=== PATIENT | female | born 1995 | race Caucasian/White ===

== ENCOUNTER 2017-09-22 13:43 | Emergency (ER) | payer BC ==
[2017-09-22 13:54] VITALS: BP 102/70
--- NOTE | 2017-09-22 14:11 | UC ---
Skin Complaint HPI - HPI Summary HPI Summary: while cleaning today, pt bent her R 5th fingernail backwards and it partially tore off - History of Current Complaint Chief Complaint: UCSkin Time Seen by Provider: 09/22/17 13:58 Stated Complaint: FINGERNAIL INJURY Hx Obtained From: Patient Hx Last Menstrual Period: 08/23/17 ?: No Onset/Duration: Sudden Onset Skin Exposure Onset/Duration: Hours Ago - 1h Timing: Constant Onset Severity: Severe Current Severity: Moderate Pain Intensity: 6 Location: Hand (Right) - 5th finger nail Character: Painful Aggravating Factor(s): Touch Alleviating Factor(s): Cold Compresses, Other - elevated Associated Signs & Symptoms: Positive: Negative - Allergy/Home Medications Allergies/Adverse Reactions: Allergies Allergy/AdvReac Type Severity Reaction Status Date / Time Environmental Allergy Congestion Uncoded 09/22/17 13:54 Review of Systems Constitutional: Negative Respiratory: Negative Cardiovascular: Negative Musculoskeletal: Negative Neurological: Negative Psychological: Negative All Other Systems Reviewed And Are Negative: Yes PMH/Surg Hx/FS Hx/Imm Hx Previously Healthy: Yes - Surgical History Surgical History: None - Family History Known Family History: Negative: Cardiac Disease, Hypertension, Diabetes - Social History Occupation: Employed Full-time Lives: With Family Alcohol Use: Weekly Substance Use Type: Marijuana Substance Use Comment - Amount & Last Used: not since last year Smoking Status (MU): Current Some Day Smoker Type: Cigarettes Amount Used/How Often: 1 pack per week Length of Time of Smoking/Using Tobacco: 1.5 years When Did the Patient Quit Smoking/Using Tobacco: 2.5 weeks ago Cessation Counseling: Patient Advised to Stop - Immunization History Vaccination Up to Date: Yes Physical Exam Triage Information Reviewed: Yes Appearance: Well-Appearing, No Pain Distress, Well-Nourished Vital Signs: Initial Vital Signs Temp 98 F 09/22/17 13:45 Pulse 70 09/22/17 13:45 Resp 18 09/22/17 13:45 BP 102/70 09/22/17 13:45 Pulse Ox 100 09/22/17 13:45 Vital Signs Reviewed: Yes Respiratory Exam: Normal Cardiovascular Exam: Normal Musculoskeletal Exam: Normal Musculoskeletal: Positive: Strength Intact, ROM Intact Neurological Exam: Normal Psychological Exam: Normal Skin: Positive: Other - partial avulsion R 5th nail from nail bed Course/Dx - Course Course Of Treatment: nail supported by tape, finger splint applied - Differential Diagnoses - Skin Complaint Differential Diagnoses: Other - nail avulsion, finger fracture - Diagnoses Provider Diagnoses: R 5th fingernail avulsion Discharge - Sign-Out/Discharge Documenting (check all that apply): Patient Departure - Discharge Plan Condition: Good Disposition: HOME Patient Education Materials: Nail Avulsion (ED) Referrals: Samreen Govea MD [Primary Care Provider] - 2 Days (if no better) Additional Instructions: keep wound clean and dry, keep nail taped for 3-5 days use finger splint for 3 days monitor for infection and report signs if they occur - Billing Disposition and Condition Condition: GOOD Disposition: Home Attestation Statement User Type: Provider - I was available for consult. This patient was seen by the [facility]. The patient was not presented to, seen by, or examined by me. -Marcelina
== END 2017-09-22 14:27 | disposition home or self-care (01) ==
LOC: UCEAST 13:43
DX: S61.306A Unspecified open wound of right little finger with damage to nail, initial encounter (principal); W22.8XXA Striking against or struck by other objects, initial encounter; Y92.89 Other specified places as the place of occurrence of the external cause
CPT/HCPCS: 99211; G0463

== ENCOUNTER 2018-03-18 09:37 | Emergency (ER) | payer BC ==
[2018-03-18 10:03] VITALS: BP 99/59
[2018-03-18] MEDS ORDERED: predniSONE TAB* 20 MG PO ONE (10:16)
--- NOTE | 2018-03-18 10:28 | UC ---
Skin Complaint HPI - HPI Summary HPI Summary: 22 y'/o female with long standing h/o pressure urticaria, treated well with singulair 5mg daily, ran out about 2 days ago, notes hives n buttock, thighs, and upper lip, denies difficulty breathing, throat swelling. patient is well aware of symptoms and diagnosis. - History of Current Complaint Chief Complaint: UCAllergicReaction Time Seen by Provider: 03/18/18 10:10 Stated Complaint: HIVES Hx Obtained From: Patient Hx Last Menstrual Period: 02/24/18 ?: No Onset/Duration: Sudden Onset, Lasting Days - x2, Worse Since - daily Onset Severity: Mild Current Severity: Mild Pain Intensity: 3 Pain Scale Used: 0-10 Numeric Location: Discrete - buttock, thighs where pressure from sitting - Allergy/Home Medications Allergies/Adverse Reactions: Allergies Allergy/AdvReac Type Severity Reaction Status Date / Time Environmental Allergy Congestion Uncoded 03/18/18 09:53 Home Medications: Home Medications Etonogest/Eth.estradiol (Nf) [Nuvaring Vaginal Ring] 1 each VAGINAL .SEE COMMENTS 03/18/18 [History Confirmed 03/18/18] PMH/Surg Hx/FS Hx/Imm Hx Previously Healthy: Yes - Surgical History Surgical History: None - Family History Known Family History: Negative: Cardiac Disease, Hypertension, Diabetes - Social History Alcohol Use: Occasionally Substance Use Type: None Substance Use Comment - Amount & Last Used: not since last year Smoking Status (MU): Former Smoker Type: Cigarettes Amount Used/How Often: states occasional Length of Time of Smoking/Using Tobacco: 1.5 years When Did the Patient Quit Smoking/Using Tobacco: 2.5 weeks ago - Immunization History Vaccination Up to Date: Yes Review of Systems All Other Systems Reviewed And Are Negative: Yes Skin: Positive: Rash ENT: Negative: Dental Pain Respiratory: Negative: Shortness Of Breath, Cough Is Patient Immunocompromised?: No Physical Exam Triage Information Reviewed: Yes Appearance: Well-Appearing, No Pain Distress, Well-Nourished Vital Signs: Initial Vital Signs Temp 97.8 F 03/18/18 09:56 Pulse 85 03/18/18 09:56 Resp 16 03/18/18 09:56 BP 99/59 03/18/18 09:56 Pulse Ox 99 03/18/18 09:56 Vital Signs Reviewed: Yes Eyes: Positive: Conjunctiva Clear ENT: Positive: Pharynx normal, Uvula midline. Negative: Pharyngeal erythema, Tonsillar swelling, Tonsillar exudate, Sinus tenderness Neck: Positive: Supple, Nontender, No Lymphadenopathy. Negative: Nuchal Rigidity, Enlarged Nodes @ Respiratory: Positive: Chest non-tender, Lungs clear, Normal breath sounds, No respiratory distress, No accessory muscle use. Negative: Crackles, Rhonchi, Stridor, Wheezing Cardiovascular: Positive: RRR Neurological Exam: Normal Psychological Exam: Normal Skin: Positive: Other - large wheels with erythematous base on b/l buttocks, thighs. smaller, less pronouced areas on wrist. mild inflammation of upper lip without erythema . Course/Dx - Course Course Of Treatment: h/o pressure urticaria, steroid dose given, script for singulair, return or go to ER with increased swelling, SOB, pain - Diagnoses Provider Diagnosis: Pressure urticaria Discharge - Sign-Out/Discharge Documenting (check all that apply): Patient Departure All imaging exams completed and their final reports reviewed: No Studies - Discharge Plan Condition: Good Disposition: HOME Prescriptions: Montelukast Sodium TAB* [Singulair TAB*] 5 mg PO DAILY #30 tab predniSONE [Prednisone 20 MG TAB] 20 mg PO SEE INSTRUCTIONS #9 tablet Patient Education Materials: Urticaria (ED) Referrals: No Primary Care Phys,NOPCP [Primary Care Provider] - Additional Instructions: Prednisone Taper to decrease 60mg 03/18- given at urgent care 60mg 03/19 40mg 03/20, 03/21 20mg 15, 16 - Singulair- resume, script written - Go to ER with shortness of breath, swelling of airway, increased lesions - Billing Disposition and Condition Condition: GOOD Disposition: Home
== END 2018-03-18 10:25 | disposition home or self-care (01) ==
LOC: UCEAST 09:37
DX: L50.8 Other urticaria (principal); Z87.891 Personal history of nicotine dependence; Z91.09 Other allergy status, other than to drugs and biological substances
CPT/HCPCS: 99212; G0463; J7512

== ENCOUNTER 2018-06-13 12:25 | Emergency (ER) | payer BC ==
--- NOTE | 2018-06-13 12:29 | UC ---
Complaint Female HPI - HPI Summary HPI Summary: 22 yo female presents with lower abdominal pain for the last month. She tells me that her pain began about a month or so and has been constant since. Feels like a pressure in her lower abdomen/bladder, but extends out to the left and right pelvis. She mentions that she uses the nuvaring for control, but did not use it the month of may due to a prescription issue. She has been using it again the last 2 weeks. LMP 05/26/18 and was normal for her. She was seen for lower abdominal pain about 3 months ago in our clinic and it was constipation related at that time, but pt states this feels different and she is having a comfortable BM daily now. Denies fever, chills, n/v, flank pain, dysuria, vaginal bleeding or discharge. No concern for STIs or today. - History Of Current Complaint Stated Complaint: POSSIBLE UTI Time Seen by Provider: 06/13/18 12:28 Hx Obtained From: Patient Hx Last Menstrual Period: 02/24/18 - Allergies/Home Medications Allergies/Adverse Reactions: Allergies Allergy/AdvReac Type Severity Reaction Status Date / Time Environmental Allergy Congestion Uncoded 06/13/18 12:32 Home Medications: Home Medications Albuterol HFA INHALER* [Ventolin HFA Inhaler*] 1 puff INH Q4H PRN 06/13/18 [ History Confirmed 06/13/18] Montelukast Sodium TAB* [Singulair TAB*] 10 mg PO DAILY 06/13/18 [History] PMH/Surg Hx/FS Hx/Imm Hx - Additional Past Medical History Additional PMH: Seasonal allergies Endocrine History: Hypothyroidism - Surgical History Surgical History: None - Family History Known Family History: Negative: Cardiac Disease, Hypertension, Diabetes - Social History Lives: With Family Alcohol Use: Occasionally Substance Use Type: None Substance Use Comment - Amount & Last Used: not since last year Smoking Status (MU): Former Smoker Type: Cigarettes Amount Used/How Often: states occasional Length of Time of Smoking/Using Tobacco: 1.5 years When Did the Patient Quit Smoking/Using Tobacco: 2.5 weeks ago - Immunization History Vaccination Up to Date: Yes Review of Systems All Other Systems Reviewed And Are Negative: Yes Constitutional: Positive: Negative Skin: Positive: Negative Respiratory: Positive: Negative Cardiovascular: Positive: Negative Gastrointestinal: Positive: Abdominal Pain Genitourinary: Positive: Negative Neurovascular: Positive: Negative Neurological: Positive: Negative Psychological: Positive: Negative Physical Exam - Summary Physical Exam Summary: GENERAL: NAD. WDWN. No pain distress. SKIN: No rashes, sores, lesions, or open wounds. NECK: Supple. Nontender. No lymphadenopathy. CHEST: CTAB. No r/r/w. No accessory muscle use. Breathing comfortably and in no distress. CV: RRR. Without m/r/g. Pulses intact. Cap refill <2seconds ABDOMEN: Mild discomfort overlying bladder/uterus with palpation. Soft. No distention or guarding. No organomegaly. No CVA tenderness. Bowel sounds present NEURO: Alert. PSYCH: Age appropriate behavior. Triage Information Reviewed: Yes Vital Signs: Vital Signs: Temp Pulse Resp BP Pulse Ox 98 F 83 16 131/70 97 06/13/18 12:35 06/13/18 12:35 06/13/18 12:35 06/13/18 12:35 06/13/18 12:35 Laboratory Tests 06/13/18 06/13/18 12:51 12:53 POC Urine Color Yellow POC Urine Clarity Clear POC Urine pH 6.0 POC Ur Specif [place] 1.025 POC Urine Protein Trace A POC Ur Glucose (UA) Negative POC Urine Ketones Negative POC Urine Blood Trace-intact A POC Urine Nitrite Negative POC Urine Bilirubin Negative POC Urine Urobilinogen 0.2 POC U Leukocyte Esteras Negative POC Ur Test Negative Vital Signs Reviewed: Yes Complaint Female Dx - Course Course Of Treatment: UA and urine negative. Pt declined pelvic exam today. US: IMPRESSION: Unremarkable pelvic ultrasound. Discussed results with pt. I am unsure the cause of her discomfort, but have a low suspicion for any urgent/emergent condition at this time. I recommended that she f/u with her OBGYN if her symptoms do not improve. - Differential Dx/Diagnosis Provider Diagnosis: Pelvic pain Discharge - Sign-Out/Discharge Documenting (check all that apply): Patient Departure All imaging exams completed and their final reports reviewed: Yes - Discharge Plan Condition: Stable Disposition: HOME Patient Education Materials: Pelvic Pain in Women (ED) Referrals: Samreen Govea MD [Primary Care Provider] - Additional Instructions: If you develop a fever, shortness of breath, chest pain, new or worsening symptoms - please call your PCP or go to the ED immediately. Your urine and ultrasound were normal today. I am unsure the cause of your abdominal discomfort, but the tests have been negative/normal. I recommend that you follow up with your OBGYN doctor for further evaluation of your discomfort if it continues. - Billing Disposition and Condition Condition: STABLE Disposition: Home
[2018-06-13 12:43] VITALS: BP 131/70
== END 2018-06-13 14:32 | disposition home or self-care (01) ==
LOC: UCEAST 12:25
DX: R10.2 Pelvic and perineal pain (principal); Z32.02 Encounter for pregnancy test, result negative; Z30.44 Encounter for surveillance of vaginal ring hormonal contraceptive device; J30.2 Other seasonal allergic rhinitis; E03.9 Hypothyroidism, unspecified; Z87.891 Personal history of nicotine dependence
CPT/HCPCS: 76830; 81003; 84702; 99211; G0463

== ENCOUNTER 2018-07-10 12:13 | Emergency (ER) | payer BC ==
[2018-07-10 12:48] VITALS: BP 106/69
--- NOTE | 2018-07-10 13:09 | UC ---
Complaint Female HPI - HPI Summary HPI Summary: 22-year-old female presents with onset of dysuria, frequency, and urgency yesterday. Associated with some mild suprapubic discomfort. States she started taking Uristat for the symptoms however they continued to worsen. Last menstrual period was 06/23/2018. She is currently using the NuvaRing for control. Denies fever, chills, back or flank pain, nausea, vomiting, hematuria , vaginal discharge, dyspareunia, or abnormal bleeding. - History Of Current Complaint Chief Complaint: UCGU Stated Complaint: URINARY ISSUE Time Seen by Provider: 07/10/18 12:52 Hx Obtained From: Patient Hx Last Menstrual Period: 06/23/18 Pain Intensity: 4 - Allergies/Home Medications Allergies/Adverse Reactions: Allergies Allergy/AdvReac Type Severity Reaction Status Date / Time Environmental Allergy Congestion Uncoded 07/10/18 12:48 Home Medications: Home Medications Phenazopyridine TAB* [Pyridium 100 mg TAB*] 100 mg PO TID PRN 07/10/18 [History Confirmed 07/10/18] PMH/Surg Hx/FS Hx/Imm Hx Endocrine History: Hypothyroidism Respiratory History: Asthma - Surgical History Surgical History: None - Family History Known Family History: Positive: Non-Contributory - Social History Occupation: Employed Full-time Lives: With Family Alcohol Use: Daily Alcohol Amount: a few drinks each night - pt states "drinks" Substance Use Type: None Substance Use Comment - Amount & Last Used: not since last year Smoking Status (MU): Light Every Day Tobacco Smoker Type: Cigarettes Amount Used/How Often: states occasional Length of Time of Smoking/Using Tobacco: 1.5 years When Did the Patient Quit Smoking/Using Tobacco: 2.5 weeks ago - Immunization History Vaccination Up to Date: Yes Review of Systems All Other Systems Reviewed And Are Negative: Yes Constitutional: Negative: Fever, Chills Respiratory: Positive: Negative Cardiovascular: Positive: Negative Gastrointestinal: Negative: Abdominal Pain, Vomiting, Nausea Genitourinary: Positive: Dysuria, Frequency, Urgency. Negative: Hematuria, Vaginal/Penile Burning, Vaginal/Penile Itching, Vaginal/Penile Discharge, Ulceration/Lesion, Abnormal Bleeding Musculoskeletal: Positive: Negative Neurological: Positive: Negative Is Patient Immunocompromised?: No Physical Exam - Summary Physical Exam Summary: GENERAL APPEARANCE: Well developed, well nourished, alert and cooperative, and appears to be in no acute distress. CARDIAC: Normal S1 and S2. No S3, S4 or murmurs. Rhythm is regular. There is no peripheral edema, cyanosis or pallor. Extremities are warm and well perfused. Capillary refill is less than 2 seconds. Peripheral pulses intact. LUNGS: Clear to auscultation without rales, rhonchi, wheezing or diminished breath sounds. ABDOMEN: Positive bowel sounds. Soft, nondistended. Mild suprapubic tenderness without guarding or rebound. No masses or hepatosplenomegally. No CVA tenderness. MUSKULOSKELETAL: ROM intact to all extremities. No joint erythema or tenderness. Normal muscular development. Normal gait. SKIN: Skin normal color, texture and turgor with no lesions or eruptions. Triage Information Reviewed: Yes Vital Signs: Initial Vital Signs Temp 97.9 F 07/10/18 12:44 Pulse 98 07/10/18 12:44 Resp 16 07/10/18 12:44 BP 106/69 07/10/18 12:44 Pulse Ox 100 07/10/18 12:44 Vital Signs Reviewed: Yes Complaint Female Dx - Course Course Of Treatment: 22-year-old female presents with onset of dysuria, frequency, and urgency yesterday. Associated with some mild suprapubic discomfort. States she started taking Uristat for the symptoms however they continued to worsen. Last menstrual period was 06/23/2018. She is currently using the NuvaRing for control. Denies fever, chills, back or flank pain, nausea, vomiting, hematuria , vaginal discharge, dyspareunia, or abnormal bleeding. Afebrile. Vital signs stable. Patient had some mild suprapubic discomfort without guarding or rebound an otherwise unremarkable exam. Since patient was already taking Uristat is unable to perform a urinalysis at this time therefore we'll treat her empirically for UTI based on her symptoms. Urine culture is pending. She has been prescribed Bactrim DS 1 tablet twice a day 5 days. Recommend that she continue with the Uristat as directed for the next 2 days. She is to follow -up with her primary care provider 3 days if symptoms do not improve. Discharged IN warning symptoms reviewed with the patient. Verbalizes understanding and agrees with plan of care. - Differential Dx/Diagnosis Differential Diagnosis/HQI/PQRI: Pelvic Inflammatory Disease, Sexually Transmitted Disease, Urinary Tract Infection Provider Diagnosis: UTI (urinary tract infection) Discharge - Sign-Out/Discharge Documenting (check all that apply): Patient Departure All imaging exams completed and their final reports reviewed: No Studies - Discharge Plan Condition: Stable Disposition: HOME Prescriptions: Sulfamethox/Trimethoprim DS* [Bactrim DS 800/160 TAB*] 1 tab PO BID #10 tab Patient Education Materials: Urinary Tract Infection in Women (ED) Referrals: Samreen Govea MD [Primary Care Provider] - 3 Days Additional Instructions: Because you are taking the Uristat we are unable to run a urine test at this time however based on your symptoms we will start you on an antibiotic to treat for the infection. We will also send a urine culture today to see what bacteria grow out and make sure the antibiotic you were prescribed is appropriate to treat the infection. It will take 48-72 hours to get these results. We will contact you if there is any change in your treatment plan. Start Bactrim DS 1 tab twice a day for 5 days.. You may continue to take the Uristat according to directions for next 2 days to help with the discomfort. This medication will turn your urine an orange color. Drink plenty of fluids. To help prevent urinary tract infections: 1) Be sure to wipe from front to back. 2) Urinate immediately after any sexual intercourse. 3) Avoid taking bubble baths. Follow up with your primary care provider in 3-5 days if symptoms persist. Seek immediate medical attention in the emergency room if you develop fever greater than 100.5 F, have severe abdominal pain, persistent vomiting, or any worsening of symptoms. - Billing Disposition and Condition Condition: STABLE Disposition: Home
== END 2018-07-10 13:23 | disposition home or self-care (01) ==
LOC: UCEAST 12:13
DX: N39.0 Urinary tract infection, site not specified (principal); F17.210 Nicotine dependence, cigarettes, uncomplicated
CPT/HCPCS: 87086; 99212; G0463

== ENCOUNTER 2018-11-06 14:36 | Emergency (ER) | payer BC ==
[2018-11-06 14:53] VITALS: BP 113/72
--- NOTE | 2018-11-06 14:57 | UC ---
Throat Pain/Nasal Marlon HPI - HPI Summary HPI Summary: 23 yo female presents with cold symptoms. 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 Over the last 5 days has had worsening sinus pain/pressure/congestion , sore throat, and dry cough. He been taking dayquill and OTC cold medicine with little relief. Denies fever, chills, rash, SOB, n/v - History of Current Complaint Chief Complaint: UCRespiratory Stated Complaint: SORE THROAT, COUGH Time Seen by Provider: 11/06/18 14:57 Hx Obtained From: Patient Hx Last Menstrual Period: 10/21/18 Severity: Mild Pain Intensity: 4 Pain Scale Used: 0-10 Numeric - Allergies/Home Medications Allergies/Adverse Reactions: Allergies Allergy/AdvReac Type Severity Reaction Status Date / Time kiwi Allergy Itching Verified 11/06/18 14:54 orange Allergy Itching Verified 11/06/18 14:54 pineapple Allergy Itching Verified 11/06/18 14:54 Environmental Allergy Congestion Uncoded 11/06/18 14:53 PMH/Surg Hx/FS Hx/Imm Hx Endocrine History: Hypothyroidism Respiratory History: Asthma - Surgical History Surgical History: None - Family History Known Family History: Positive: Non-Contributory - Social History Occupation: Employed Full-time Lives: With Family Alcohol Use: Daily Alcohol Amount: a few drinks each night - pt states "drinks" Substance Use Type: None Substance Use Comment - Amount & Last Used: not since last year Smoking Status (MU): Current Some Day Smoker Type: Cigarettes Amount Used/How Often: states occasional Length of Time of Smoking/Using Tobacco: 1.5 years When Did the Patient Quit Smoking/Using Tobacco: 2.5 weeks ago - Immunization History Vaccination Up to Date: Yes Review of Systems All Other Systems Reviewed And Are Negative: No Constitutional: Positive: Negative Skin: Positive: Negative Eyes: Positive: Negative ENT: Positive: Sore Throat, Nasal Discharge, Sinus Congestion, Sinus Pain/ Tenderness Respiratory: Positive: Cough Cardiovascular: Positive: Negative Gastrointestinal: Positive: Negative Neurovascular: Positive: Negative Neurological: Positive: Negative Psychological: Positive: Negative Physical Exam - Summary Physical Exam Summary: GENERAL: NAD. WDWN. No pain distress. SKIN: No rashes, sores, lesions, or open wounds. HEENT: Head: AT/NC Eyes: Conjunctiva clear without inflammation or discharge. Ears: Hearing grossly normal. TMs intact, no bulging, erythema, or edema. Nose: Nasal mucosa pink and moist. TTP maxillary and frontal sinus. Positive post nasal drip Throat: Posterior oropharynx mild erythema and 2+ tonsillar enlargement. No exudates. Uvula midline. No hoarse voice or muffled voice. NECK: Supple. Nontender. No lymphadenopathy. CHEST: CTAB. No r/r/w. No accessory muscle use. Breathing comfortably and in no distress. CV: RRR.. Pulses intact. Cap refill <2seconds NEURO: Alert. PSYCH: Age appropriate behavior. Triage Information Reviewed: Yes Vital Signs: Initial Vital Signs Temp 98.3 F 11/06/18 14:49 Pulse 109 11/06/18 14:49 Resp 18 11/06/18 14:49 BP 113/72 11/06/18 14:49 Pulse Ox 97 11/06/18 14:49 Vital Signs Reviewed: Yes Throat Pain/Nasal Course/Dx - Course Course Of Treatment: Suspect sinusitis. Discussed viral vs bacterial causes with the pt and she prefers to be on anbx at this time - Differential Dx/Diagnosis Provider Diagnosis: Sinusitis Discharge ED - Sign-Out/Discharge Documenting (check all that apply): Patient Departure All imaging exams completed and their final reports reviewed: No Studies - Discharge Plan Condition: Stable Disposition: HOME Prescriptions: Amoxicillin PO (*) [Amoxicillin 875 MG (*)] 875 mg PO BID #14 tab Patient Education Materials: Sinusitis (ED) Forms: *Work Release Referrals: Samreen Govea MD [Primary Care Provider] - Additional Instructions: If you develop a fever, shortness of breath, chest pain, new or worsening symptoms - please call your PCP or go to the ED immediately. - Billing Disposition and Condition Condition: STABLE Disposition: Home
== END 2018-11-06 15:25 | disposition home or self-care (01) ==
LOC: UCEAST 14:36
DX: J32.9 Chronic sinusitis, unspecified (principal); R05 Cough; J45.909 Unspecified asthma, uncomplicated; R09.89 Other specified symptoms and signs involving the circulatory and respiratory systems; J02.9 Acute pharyngitis, unspecified; F17.210 Nicotine dependence, cigarettes, uncomplicated; Z91.018 Allergy to other foods; Z91.09 Other allergy status, other than to drugs and biological substances
CPT/HCPCS: 99212; G0463

== ENCOUNTER 2019-03-20 15:28 | Emergency (ER) | payer BC ==
--- OUTSIDE RECORDS SUMMARY | 2019-03-20 15:35 | XMS REPORT ---
:1995 Author Organization [facility] Address [address] [place] [address] Care Team Providers Name Role Phone Clementina Mi Unavailable Unavailable PROBLEMS Type Condition ICD9-CM Code [id number] Code Onset Condition SNOMED Code Dates Status Problem Unspecified N94.10 Active 08839199 dyspareunia Problem Anal spasm K59.4 Active 92285226 ALLERGIES No Information ENCOUNTERS Encounter Location Date Diagnosis [facility] [address] Feb, [place] [id number] [facility] [address] [facility], [facility] [address] [place] [address], R10.2 and [place]counter [place] [id number] screening for infections with a predominantly sexual mode of transmission Z11.3 [facility] [address] Feb, [place] [id number] [facility] [address] Jan, [place] [id number] [facility] [address] Jan, [facility] [address] [place] [id number] [facility] [address] Aug, [place] [id number] [facility] [address] Aug, [facility] [address] [place], gynecological examination [place] [id number] (general) (routine) without abnormal findings Z01.419 ; Encounter for other general counseling and advice on contraception Z30.09 ; Abnormal weight gain R63.5 and Other specified noninflammatory disorders of vagina N89.[address] June, Encounter for [address], gynecological examination [place] [id number] (general) (routine) with abnormal findings Z01.411 ; Unspecified dyspareunia N94.10 ; Encounter for gynecological examination (general) (routine) without abnormal findings Z01.419 ; Anal spasm K59.4 and Encounter for other general counseling and advice on contraception Z30.[address] Sep, [address], [place] [id number] [place] [facility] [address] Jul, [facility].2 ; Unspecified [place] [id number] dyspareunia N94.10 and Anal spasm K59.4 [place] [facility] 103 Jul, [facility] N94.10 and [place]vic [place] [id number] perineal pain R10.2 [place] [facility] 103 16 Jun, 2017 Encounter for [facility], contraceptive management, [place] [id number] unspecified Z30.[address] June, Encounter for [address], gynecological examination [place] [id number] (general) (routine) without abnormal findings Z01.419 ; Pelvic and perineal pain R10.2 ; Unspecified dyspareunia N94.10 ; Encounter for screening for malignant neoplasm of cervix Z12.4 ; Encounter for screening for infections with a predominantly sexual mode of transmission Z11.3 ; Other specified noninflammatory disorders of vagina N89.8 and Anal spasm K59.4 [place] [facility] [address] Mar, [place] [id number] [place] [facility] Mar, Encounter for other [facility], general counseling and [place] [id number] advice on contraception Z30.09 [facility] [address] Aug, [place] [id number] [place] [facility] [address] Aug, O[address]YN [address] [place], [place] [id number] [place] [facility] [address] [facility] June, Encounter for routine OBGYN [address] [place], follow-up Z39.2 [place] [id number] and Encounter for contraceptive management, unspecified Z30.9 [place] [facility] [address] May, [place] [id number] [place] [facility] [address] Apr, [place] [id number] [place] [facility] 103 Apr, Encounter for OBGYN [facility], screening of mother Z36 [place] [id number] [place] [facility] Apr, Encounter for OBGYN [facility], screening of mother Z36 [place] [id number] [facility] [address] Apr, Encounter for OBGYN [facility], screening of mother Z36 [place] [id number] [facility] [address] Mar, [place] [id number] [facility] Mar, [place] [id number] [facility] 103 Feb, Dysuria R30.0 [place] [id number] [place] [facility] Feb, [place] [id number] [place] [facility] 103 Feb, Encounter for OBGYN [facility], screening of mother Z36 [place] [id number] [facility] [address] Jan, [place] [id number] [facility] Dec, [place] [id number] [place] [facility] 103 Dec, Encounter for suspected OBGYN [facility], anomaly ruled out [place] [id number] Z03.73 [place] [facility] Nov, [place] [id number] [facility] Nov, Encounter for screening OBGYN [facility], for infections with a [place] [address] predominantly sexual mode of transmission Z11.3 and Other specified noninflammatory disorders of vagina N89.8 [place] [facility] Nov, Secondary amenorrhea N91.1 OBGYN [facility], and Encounter [place] [id number] test, result positive Z32.01 IMMUNIZATIONS No Known Immunizations SOCIAL HISTORY Never Assessed REASON FOR REFERRAL FUNCTIONAL STATUS PLAN OF CARE VITAL SIGNS MEDICATIONS Unknown Medications PROCEDURES No Known procedures RESULTS No Results REASON FOR VISIT n/s to appt. - LMTCB 01/23/2019 Insurance Providers [facility] Member Patient Patient Patient Patient Patient Subscriber Subscriber Subscriber Group Insurance Plan Plan Plan Plan ID Relationship Address Phone Name Date of ID Name Date of No Type Insurance Insurance Insurance Coverage to Subscriber Address Phone Name Dates [facility] [address] [id number] Blue [id number] [address] 6 [id number] Cross/Blue [place] Cross/Blue Shield [address] Shield [place] [address] self Amy [id number] Blue [id number] 89 [address] 1 Cross/Blue [place] Cross/Blue Shield [address] Shield [place] [address] [place] [id number] Blue [id number] 89 [address] 1 Cross/Blue [place] Cross/Blue Shield [id number] Shield MEDICAL (GENERAL) HISTORY Type Description Date Medical History Hypothyroidism Medical History Asthma Medical History Allergies Surgical History No Surgical history information Hospitalization History Mental Health 07/2014 Hospitalization History Childbirth
--- OUTSIDE RECORDS SUMMARY | 2019-03-20 15:35 | XMS REPORT ---
:1995 Author Organization [facility] Address [address] [place] [address] Care Team Providers Name Role Phone Clementina Mi Unavailable Unavailable PROBLEMS Type Condition ICD9-CM Code ZOF95-YY Code Onset Condition SNOMED Code Dates Status Problem Unspecified N94.10 Active 33629455 dyspareunia Problem Anal spasm K59.4 Active [id number] ALLERGIES No Information ENCOUNTERS Encounter Location Date Diagnosis [facility] [address] Feb, [place] [id number] [facility] [address] [facility], [facility] [address] [place] [address], R10.2 and Encounter for [place] [id number] screening for infections with a predominantly sexual mode of transmission Z11.3 [facility] [address] Feb, [place] [id number] [facility] [address] Jan, [place] [id number] [facility] [address] Jan, [facility] [address] [place] [id number] [facility] [address] Aug, [place] [id number] [facility] [address] Aug, [facility] [address] [place], gynecological examination [place] [id number] (general) (routine) without abnormal findings Z01.419 ; Encounter for other general counseling and advice on contraception Z30.09 ; Abnormal weight gain R63.5 and Other specified noninflammatory disorders of vagina N89.[address] June, Encounter for [address], gynecological examination [place] [id number] (general) (routine) with abnormal findings Z01.411 ; Unspecified dyspareunia N94.10 ; Encounter for gynecological examination (general) (routine) without abnormal findings Z01.419 ; Anal spasm K59.4 and Encounter for other general counseling and advice on contraception Z30.[address] Sep, [address], [place] [id number] [place] [facility] [address] Jul, [facility] R10.2 ; Unspecified [place] [id number] dyspareunia N94.10 and Anal spasm K59.4 [place] [facility] 103 Jul, [facility], N94.10 and Pelvic and [place] [id number] perineal pain R10.2 [place] [facility] 103 16 Jun, 2017 Encounter for [facility], contraceptive management, [place] [id number] unspecified Z30.[address] June, Encounter for [address], gynecological examination [place] [id number] (general) (routine) without abnormal findings Z01.419 ; Pelvic and perineal pain R10.2 ; Unspecified dyspareunia N94.10 ; Encounter for screening for malignant neoplasm of cervix Z12.4 ; Encounter for screening for infections with a predominantly sexual mode of transmission Z11.3 ; Other specified noninflammatory disorders of vagina N89.8 and Anal spasm K59.4 [place] [facility] [address] Mar, [place] [id number] [place] [facility] [address] Mar, Encounter for other [facility], general counseling and [place] [id number] advice on contraception Z30.09 [facility] [address] Aug, [place] [id number] [place] [facility] [address] [facility] Aug, O[address]YN [address] [place], [place] [id number] [place] [facility] [address] [facility] June, Encounter for routine OBGYN Road [address] [place], follow-up Z39.2 [place] [id number] and Encounter for contraceptive management, unspecified Z30.9 [place] [facility] [address] May, [place] [id number] [place] [facility] Apr, [place], [place] [id number] [place] [facility] [address] Apr, Encounter for OBGYN [facility], screening of mother Z36 [place] [id number] [place] [facility] [address] Apr, Encounter for OBGYN [facility], screening of mother Z36 [place] [id number] [facility] [address] Apr, Encounter for OBGYN [facility], screening of mother Z36 [place] [id number] [facility] [address] Mar, [place] [id number] [facility] Mar, [place] [id number] [facility] [address] Feb, Dysuria R30.0 [place]BG[place] [id number] [place] [facility] Feb, [place] [id number] [place] [facility] [address] Feb, Encounter for OBGYN [facility], screening of mother Z36 [place] [id number] [facility] [address] Jan, [place] [id number] [facility] Dec, [place]BG[place] [id number] [place] [facility] 103 Dec, Encounter for suspected OBGYN [facility], anomaly ruled out [place] [id number] Z03.73 [place] [facility] Nov, [place] [id number] [facility] Nov, Encounter for screening OBGYN [facility], for infections with a [place] [address] predominantly sexual mode of transmission Z11.3 and Other specified noninflammatory disorders of vagina N89.8 [place] [facility] Nov, Secondary amenorrhea N91.1 OBGYN [facility], and Encounter for [place] [id number] test, result positive Z32.01 IMMUNIZATIONS No Known Immunizations SOCIAL HISTORY Never Assessed REASON FOR REFERRAL FUNCTIONAL STATUS PLAN OF CARE VITAL SIGNS MEDICATIONS Unknown Medications PROCEDURES No Known procedures RESULTS No Results REASON FOR VISIT US & - c x 1 Insurance Providers [facility] Member Patient Patient Patient Patient Patient Subscriber Subscriber Subscriber Group Insurance Plan Plan Plan Plan ID Relationship Address Phone Name Date of ID Name Date of No Type Insurance Insurance Insurance Coverage to Subscriber Address Phone Name Dates Alexandraus [address] self [place] [id number] Blue [id number] 89 [address] 1 Cross/Blue [place] Cross/Blue Shield [address] Shield [employer] [address] [place] [id number] Blue [id number] 89 Blue [place] 1 Cross/Blue [place] Cross/Blue Shield [address] Shield [place] [address] [place] [id number] Blue [id number] 89 Blue [place] 6 A2AJ Cross/Blue [place] Cross/Blue Shield [id number] Shield MEDICAL (GENERAL) HISTORY Type Description Date Medical History Hypothyroidism Medical History Asthma Medical History Allergies Surgical History No Surgical history information Hospitalization History Mental Health 07/2014 Hospitalization History Childbirth
--- OUTSIDE RECORDS SUMMARY | 2019-03-20 15:35 | XMS REPORT | Continuity of Care Document ---
:1995 External Reference #:[id number] Author Name Alisia Mann M.D., FACP (transmitted by agent of provider Ilana Arredondo) Address [address] [place] [address], [place] [address] Care Team Providers Name Role Phone Namrata Titus MD - Internal Medicine Care Team Information Risk Management Intern Problems Active Problems Provider Date Asthma Namrata Titus MD Onset: 12/06/2018 Rheumatoid arthritis Namrata Titus MD Onset: 12/06/2018 Hypothyroidism Namrata Titus MD Onset: 12/06/2018 Social History Type Date Description Comments Sex Unknown ETOH Use Occasionally consumes alcohol Tobacco Use Start: Unknown Patient has never smoked Smoking Status Reviewed: 01/23/19 Patient has never smoked Exercise Type/Frequency Exercises sporadically Allergies, Adverse Reactions, Alerts Description No Known Drug Allergies Medications Active Medications SIG Qnty Indications Ordering Date Provider Levothyroxine Sodium 1 by mouth every day 90tabs Namrata Titus MD 2018 88mcg Tablets Xanax 1 by mouth every 6-8h 14tabs Namrata Titus MD 12/27/2018 0.25mg Tablets as needed times a day as needed Propranolol HCL take one tablet every 30tabs F41.9 Namrata Titus MD 2018 10mg 8 hours as needed for Tablets anxiety Nuvaring Insert 1 Ring Every 4 Unknown Weeks Intravaginally 0.12-0.015mg/24HR Ring Zyrtec Allergy take one tablet by Unknown 10mg mouth in the evening Capsules Singulair 1 by mouth every day 90tabs Namrata Titus MD 10mg Tablets History Medications Cipro one by nouth 14tabs Candelaria Samano, 01/01/2019 - 250mg Tablets twice daily for N.P. 01/08/2019 7 days Macrobid take one tablet 10caps Namrata Titus MD 12/22/2018 - 100mg Capsules every 12 hours 01/01/2019 Levothyroxine Sodium 1 by mouth every 30tabs Namrata Titus MD 12/20/2018 - 100mcg day 01/17/2019 Tablets Medications Administered in Office Medication SIG Qnty Indications Ordering Provider Date Depomedrol 40MG Tessa Moseley M.D. 01/24/2018 Injection Immunizations Description No Information Available Vital Signs Date Vital Result Comment 01/23/2019 10:27am Height 64.5 inches 5'4.50" Weight 136.00 lb Heart Rate 66 /min BP Systolic Sitting 120 mmHg Rue reg cuff BP Diastolic Sitting 78 mmHg Rue reg cuff O2 % BldC Oximetry 99 % BMI (Body Mass Index) 23.0 kg/m2 12/20/2018 3:06pm Height 64.5 inches 5'4.50" Weight 136.25 lb Heart Rate 88 /min BP Systolic Sitting 112 mmHg Body Temperature 98.5 F O2 % BldC Oximetry 95 % BMI (Body Mass Index) 23.0 kg/m2 Results Test Acquired Facility Test Result H/L Range Note Date Laboratory test 01/23/2019 [facility] HCG Quantitative negative finding () Urine Culture And 01/01/2019 [facility] Urine Culture SEE RESULT [address] [place] [address] [phone] Urine Culture And 12/19/2018 [facility] Urine Culture SEE RESULT [address] [place] [address] [phone] Ua Routine 12/19/2018 [facility] Ua Specific [address] Ua PH 7 Ua Color yellow Ua Appera slightly cloudy Ua WBC trace Ua Protein neg Ua Glucose normal Ua Ketones neg Ua Bilirubin neg Ua Urobilinogen normal Ua Nitrite neg Ua Occult Blood trace GC/Chlamydia 12/10/2018 [facility] GCCHL Disclaimer (SEE NOTE) 3 Amplified Rna [address] [place] [address] [phone] Chlamydia trachomatis Bailee Negative Negative Neisseria gonorrhoeae (GC) Bailee Negative Negative CBC Auto 12/06/2018 [facility] White Blood 5.5 10^3/uL Normal 3.5-10.[address] [place] [address] [phone] Red Blood Count 4.28 10^6/uL Normal 3.70-4.87 Hemoglobin 12.9 g/dL Normal 12.0-16.0 Hematocrit 38 % Normal 35-47 Mean Corpuscular Volume 88 fL Normal 80-97 Mean Corpuscular Hemoglobin 30 pg Normal 27-31 Mean Corpuscular HGB Conc 34 g/dL Normal 31-36 Red Cell Distribution Width 12 % Normal 10-15 Platelet Count 220 10^3/uL Normal 150-450 Mean Platelet Volume 8.7 fL Normal 7.4-10.4 Abs Neutrophils 2.8 10^3/uL Normal 1.5-7.7 Abs Lymphocytes 1.9 10^3/uL Normal 1.0-4.8 Abs Monocytes 0.7 10^3/uL Normal 0-0.8 Abs Eosinophils 0.1 10^3/uL Normal 0-0.6 Abs Basophils 0.0 10^3/uL Normal 0-0.2 Abs Nucleated RBC 0.0 10^3/uL Granulocyte % 50.5 % Lymphocyte % 34.2 % Monocyte % 12.6 % Eosinophil % 2.3 % Basophil % 0.4 % Nucleated Red Blood Cells % 0.1 Comp Metabolic 12/06/2018 [facility] Sodium 139 mmol/L Normal 135-[address] [place] [address] [phone] Potassium 3.8 mmol/L Normal 3.5-5.0 Chloride 106 mmol/L Normal 101-111 Co2 Carbon Dioxide 27 mmol/L Normal 22-32 Anion Gap 6 mmol/L Normal 2-11 Glucose 74 mg/dL Normal 70-100 Blood Urea Nitrogen 13 mg/dL Normal 6-24 Creatinine 0.70 mg/dL Normal 0.51-0.95 BUN/Creatinine Ratio 18.6 Normal 8-20 Calcium 9.5 mg/dL Normal 8.6-10.3 Total Protein 6.5 g/dL Normal 6.4-8.9 Albumin 4.3 g/dL Normal 3.2-5.2 Globulin 2.2 g/dL Normal 2-4 Albumin/Globulin Ratio 2.0 Normal 1-3 Total Bilirubin 0.70 mg/dL Normal 0.2-1.0 Alkaline Phosphatase 40 U/L Normal 34-104 Alt 15 U/L Normal 7-52 Ast 20 U/L Normal 13-39 Egfr Non- 103.7 >60 Egfr 125.5 >60 4 Laboratory 12/06/2018 [facility] TSH (Thyroid 1.34 Normal 0.34 -5.60 test finding [address] Stim Horm) mcIU/[place] [address] [phone] C Reactive Protein 9.64 mg/L High <8.01 Nuclear AB 12/06/2018 [facility] Nuclear Ab Positive 1:320 Abnormal 5 (Nayla) By Ifa [address] (Nayla) by [employer], [place] [address] IgG [phone] Nayla Titer: 1:320 Nayla Pattern: Speckled 6 Laboratory test 12/06/2018 [facility] Rheumatoid 14 IU/mL Normal <[address] [place] [address] [phone] Chlamydia 12/06/2018 [facility] Chlamydia 1:128 Abnormal <1: 64 Antibody Panel [address] pneumoniae [place] [address] [phone] Chlamydia pneumoniae IgM <1:10 titer <1:10 Chlamydia trachomatis IgG <1:64 titer <1:64 Chlamydia trachomatis IgM <1:10 titer <1:10 Chlamydia psittaci IgG <1:64 titer <1:64 Chlamydia psittaci IgM <1:10 titer <1:10 7 1 SEE RESULT BELOW Name: ART PURI : [address]: Candelaria Samano NP Acct: [id number] Unit: [id number] AGE: 23 Location: [facility] Re01/01/19 SEX: F Status: REG REF SPEC: [id number] NEDA: 01/01/19-1007 [facility] DR: Candelaria Samano NP REQ: [id number] RECD: 01/01/19 STATUS: COMP _ SOURCE: URINE SPDESC: ORDERED: Urine Culture COMMENTS: [id number] Urine Source: Random Procedure Result Reported Site Urine Culture Final 01/03/19- 0842 ML Organism 1 STAPHYLOCOCCUS SAPROPHYTICUS [place] Count 75-100,000 (Many) CFU/ML Routine sensitivity testing of urine isolates of S. saprophyticus is not advised, because infections respond to concentrations achieved in urine of antimicrobial agents commonly used to treat acute, uncomplicated urinary tract infections (e.g. nitrofurantoin, trimethoprim+/- sulfamethoxazole, or a fluoroquinolone). [facility] February 2001 * ML - Main Lab . END OF REPORT DEPARTMENT OF PATHOLOGY, [address] [place] [address] Kuldeep Hopkins M.D. Director JORGE # [id number] 2 SEE RESULT BELOW Name: ART PURI : [address]: Namrata Titus MD Acct: [id number] Unit: [id number] AGE: 23 Location: [facility] Re12/19/18 SEX: F Status: REG REF SPEC: [id number] NEDA: 12/19/18-4 [facility] DR: Namrata Titus MD REQ: [id number] RECD: 12/19/18 STATUS:COMP _ SOURCE: URINE SPDESC: ORDERED: Urine Culture COMMENTS: [id number] Urine Source: Random Procedure Result Reported Site Urine Culture Final 12/21/18- 1517 ML Organism 1 STAPHYLOCOCCUS SAPROPHYTICUS [place] Count >100,000 (Many) CFU/ML Routine sensitivity testing of urine isolates of S. saprophyticus is not advised, because infections respond to concentrations achieved in urine of antimicrobial agents commonly used to treat acute, uncomplicated urinary tract infections (e.g. nitrofurantoin, trimethoprim+/- sulfamethoxazole, or a fluoroquinolone). [facility] February 2001 * ML - Main Lab . END OF REPORT DEPARTMENT OF PATHOLOGY, [address] [place] [address] Kuldeep Hopkins M.D. Director [facility] # [id number] 3 As with all diagnostic procedures, the laboratory results obtained should be used in conjunction with other clinical information available to the physician, including confirmation by another method, as applicable. 4 Because ethnic data is not always readily available, this report includes an eGFR for both -Americans and non- Americans. The National Kidney Disease Education Program (NKDEP) does not endorse the use of the MDRD equation for patients that are not between the ages of 18 and 70, are , have extremes of body size, muscle mass, or nutritional status, or are non- or non-. According to the National Kidney Foundation, irrespective of diagnosis, the stage of the disease is based on the level of kidney function: Stage Description GFR(mL/min/1.73 m(2)) 1 Kidney damage with normal or decreased GFR 90 2 Kidney damage with mild decrease in GFR 60-89 3 Moderate decrease in GFR 30-59 4 Severe decrease in GFR 15-29 5 Kidney failure <15 (or dialysis) 5 REFERENCE VALUE <1:80 (Negative) 6 Test Performed by: [facility] [place] [address] Creative Services Writer: Chano Hart M.D. Ph.D.; CLIA# [id number] 7 ADDITIONAL INFORMATION This test was developed and its performance characteristics determined by [facility] in a manner consistent with CLIA requirements. This test has not been cleared or approved by the U.S. Food and Drug Administration. Test Performed by: [facility] [place] [address] Creative Services Writer: Chano Hart M.D. Ph.D.; CLIA# [id number] Procedures Description No Information Available Medical Devices Description No Information Available Encounters Type Date Location Provider Dx Diagnosis Office Visit 12/20/2018 [facility] Namrata Titus MD K59.00 Constipation, 3:00p Medicine - Ccmob unspecified E03.9 Hypothyroidism, unspecified Office Visit 12/06/2018 3:20p [facility] Internal Namrata Titus E03.9 Hypothyroidism, Medicine - MD unspecified Ccmob M06.9 Rheumatoid arthritis, unspecified Z11.3 Encntr screen for infections w sexl mode of transmiss F41.9 Anxiety disorder, unspecified K59.00 Constipation, unspecified Assessments Date Code Description Provider 01/23/2019 N93.8 Other specified abnormal uterine and Alisia Darline Mann., FACP vaginal bleeding 12/20/2018 K59.00 Constipation, unspecified Namrata Titus MD 12/20/2018 E03.9 Hypothyroidism, unspecified Namrata Titus MD 12/19/2018 N39.0 Urinary tract infection, site not specified Nurse Visit A 12/06/2018 E03.9 Hypothyroidism, unspecified Namrata Titus MD 12/06/2018 M06.9 Rheumatoid arthritis, unspecified Namrata Titus MD 12/06/2018 Z11.3 Encounter for screening for infections with Namrata Titus MD a predominantly sexual mode of transmission 12/06/2018 F41.9 Anxiety disorder, unspecified Namrata Titus MD 12/06/2018 K59.00 Constipation, unspecified Namrata Titus MD Plan of Treatment 01/23/2019 - Alisia Mann M.D., FACPN93.8 Other specified abnormal uterine and vaginal bleedingNew Xrays:US Transvaginal, Ordered: 01/23/19Comments:ABNORMAL VAGINAL BLEEDING AND CRAMPING:As we discussed, my chief concern is that you may be experiencing an early loss or an ectopic . The latter is less likely since your urine test was negative today. It is possible that you may experience heavier bleeding: if this occurs and you go through more than 3 pads/hour, you need to go to the Emergency Department.We will schedule a pelvic ultrasound today.Keep your appointment with your satellite dish technician in Feb. I suspect that the Nuvaring may not be the ideal BCP option for you. Functional Status Description No Information Available Mental Status Description No Information Available Referrals Refer to Reason for Referral Status Appt Date Maryan Guerra, PT, OCS Sent [address] [place], [place] [id number] [phone] Laura Kendall N.P. Sent [address] [place] [address] [phone]
--- OUTSIDE RECORDS SUMMARY | 2019-03-20 15:35 | XMS REPORT ---
:1995 Author Organization [facility] Address [address] [place] [address] Care Team Providers Name Role Phone Clementina Mi Unavailable Unavailable PROBLEMS Type Condition ICD9-CM Code YES64-FM Code Onset Condition SNOMED Code Dates Status Problem Unspecified N94.10 Active 01841116 dyspareunia Problem Anal spasm K59.4 Active 15372950 ALLERGIES No Known Allergies ENCOUNTERS Encounter Location Date Diagnosis [facility] [address] Feb, [place] [id number] [facility] [address] [facility] Feb, Pelvic and perineal pain [facility] [address] [place] [address], R10.2 and Encounter for [place] [id number] screening for infections with a predominantly sexual mode of transmission Z11.3 [facility] [address] Feb, [place] [id number] [facility] [address] Jan, [place] [id number] [facility] [address] Jan, [facility] [address] [place], [place] [id number] [facility] [address] Aug, [place] [id number] [facility] [address] Aug, Encounter for [facility] [address] [place], gynecological examination [place] [id number] (general) (routine) without abnormal findings Z01.419 ; Encounter for other general counseling and advice on contraception Z30.09 ; Abnormal weight gain R63.5 and Other specified noninflammatory disorders of vagina N89.[address] June, Encounter for [facility] [address] [place], gynecological examination [place] [id number] (general) (routine) with abnormal findings Z01.411 ; Unspecified dyspareunia N94.10 ; Encounter for gynecological examination (general) (routine) without abnormal findings Z01.419 ; Anal spasm K59.4 and Encounter for other general counseling and advice on contraception Z30.[address] Sep, [address] [id number] [place] [facility] [address] Jul, [facility] R10.2 ; Unspecified [place] [id number] dyspareunia N94.10 and Anal spasm K59.4 [place] [facility] 103 Jul, [facility]specified [facility], N94.10 and Pelvic and [place] [id number] perineal pain R10.2 [place] [facility] [address] June, Encounter for [facility], contraceptive management, [place] [id number] unspecified Z30.[address] June, Encounter for [address], gynecological examination [place] [id number] (general) (routine) without abnormal findings Z01.419 ; Pelvic and perineal pain R10.2 ; Unspecified dyspareunia N94.10 ; Encounter for screening for malignant neoplasm of cervix Z12.4 ; Encounter for screening for infections with a predominantly sexual mode of transmission Z11.3 ; Other specified noninflammatory disorders of vagina N89.8 and Anal spasm K59.4 [place] [facility] [address] Mar, [place] [id number] [place] [facility] [address] Mar, Encounter for other [facility], general counseling and [place] [id number] advice on contraception Z30.09 [facility] [address] Aug, OBGYN [place] [id number] [place] [facility] [address] [facility] Aug, O[address]YN [address] [place], [place] [id number] [place] [facility] [address] [facility] June, Encounter for routine OBGYN [address] [place], follow-up Z39.2 [place] [id number] and Encounter for contraceptive management, unspecified Z30.9 [place] [facility] [address] May, OBGYN [place] [id number] [place] [facility] [address] Apr, OBG[place] [id number] [facility] 103 Apr, Encounter for OBGYN [facility], screening of mother Z36 [place] [id number] [place] [facility] Apr, Encounter for OBGYN [facility], screening of mother Z36 [place] [id number] [place] [facility] 103 Apr, Encounter for OBGYN [facility], screening of mother Z36 [place] [id number] [place] [facility] [address] Mar, OBG[place] [id number] [facility] Mar, OBG[place] [id number] [place] [facility] 103 Feb, Dysuria R30.0 OBG[place] [id number] [place] [facility] [address] Feb, OBG[place] [id number] [place] [facility] 103 Feb, Encounter for OBGYN [facility], screening of mother Z36 [place] [id number] [place] [facility] [address] Jan, OBN [place] [id number] [facility] [address] Dec, [place] [id number] [facility] [address] Dec, Encounter for suspected OBN 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 [facility], and Encounter for [place] [id number] test, result positive Z32.01 IMMUNIZATIONS No Known Immunizations SOCIAL HISTORY Never Assessed REASON FOR REFERRAL FUNCTIONAL STATUS PLAN OF CARE Activity Details Follow Up schedule US w/fu Reason: VITAL SIGNS Height 65 in 2019-02-07 Weight 135 lbs 2019-02-07 BMI 22.46 kg/m2 2019-02-07 Blood pressure systolic 120 mm Hg 2019-02-07 Blood pressure diastolic 84 mm Hg 2019-02-07 MEDICATIONS Medication Instructions Dosage Frequency Start End Duration Status Date Date levothyroxine 75 orally once a day 1 tab(s) 24h Active mcg (0.075 mg) Zyrtec 10 mg orally once a day 1 tab(s) 24h Active Xanax Active NuvaRing 0.015 intravaginally 1 ea 84 days Active mg-0.120 mg/24 every 4 weeks hours Albuterol inhaler Active Singulair 10 mg orally once a day 1 tab(s) 24h Active PROCEDURES Procedure Date Ordered Result Body Site URINE TEST Feb 07, 2019 URINE-NO MICRO Feb 07, 2019 RESULTS Name Result Date Reference Range URINE TEST Urine dip Glucose blood 2+ protein Nitrite Leuko Urobilinogen Keytone Bilirubin pH Leukorrhea Panel by Swab {contains Moira 2019-02-07 Gardnerella Trich CTNG} Moira - Swab Normal Gardnerella Normal CT/NG Normal Trichomonas Vaginalis Addon - Swab Normal Moira - Swab Normal Gardnerella Normal CT/NG Normal Trichomonas Vaginalis Addon - Swab Normal REASON FOR VISIT Unusual cramping , constant X month Insurance Providers [facility] Member Patient Patient Patient Patient Patient Subscriber Subscriber Subscriber Group Insurance Plan Plan Plan Plan ID Relationship Address Phone Name Date of ID Name Date of No Type Insurance Insurance Insurance Coverage to Subscriber Address Phone Name Dates [employer] [address] Alexandraus meghan Amy [id number] Blue [id number] 89 [place] 1 Cross/Blue [place] Cross/Blue Shield [id number] Shield [employer] [phone] Alexandraus Amy [id number] Blue [id number] 89 [place] 1 Cross[place] [id number] Shield [place] [address] Adrian Niñolyn [id number] Blue [id number] 89 Blue [place] 6 [id number] Cross/Blue [place] Cross/Blue Shield [id number] Shield MEDICAL (GENERAL) HISTORY Type Description Date Medical History Hypothyroidism Medical History Asthma Medical History Allergies Surgical History No Surgical history information Hospitalization History Mental Health 07/2014 Hospitalization History Childbirth
--- OUTSIDE RECORDS SUMMARY | 2019-03-20 15:35 | XMS REPORT | Continuity of Care Document ---
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 Provider Date Asthma Namrata Titus MD Onset: 12/06/2018 Rheumatoid arthritis Namrata Titus MD Onset: 12/06/2018 Hypothyroidism Namrata Titus MD Onset: 12/06/2018 Social History Type Date Description Comments Sex Unknown ETOH Use Occasionally consumes alcohol Tobacco Use Start: Unknown Light tobacco smoker (10 or fewer cigarettes/day) Smoking Status Reviewed: 02/04/19 Light tobacco smoker (10 or fewer cigarettes/day) Exercise Type/Frequency Exercises sporadically Allergies, Adverse Reactions, Alerts Description No Known Drug Allergies Medications Active Medications SIG Qnty Indications Ordering Date Provider Levothyroxine Sodium 1 by mouth every day 30tabs E03.9 Namrata Titus MD 75mcg Tablets Xanax 1 by mouth every 6-8h 14tabs Namrata Titus MD 12/27/2018 0.25mg Tablets as needed times a day as needed Nuvaring Insert 1 Ring Every 4 Unknown Weeks Intravaginally 0.12-0.015mg/24HR Ring Zyrtec Allergy take one tablet by Unknown 10mg mouth in the evening Capsules Singulair 1 by mouth every day 90tabs Namrata Titus MD 10mg Tablets History Medications Levothyroxine Sodium 1 by mouth every 90tabs Namrata Titus MD 01/17/2019 - day 02/04/2019 88mcg Tablets Cipro one by nouth 14tabs Candelaria Samano, 01/01/2019 - 250mg Tablets twice daily for N.P. 01/08/2019 7 days Macrobid take one tablet 10caps Namrata Titus MD 12/22/2018 - 100mg Capsules every 12 hours 01/01/2019 Levothyroxine Sodium 1 by mouth every 30tabs Namrata Titus MD 12/20/2018 - day 01/17/2019 100mcg Tablets Propranolol HCL take one tablet 30tabs F41.9 Namrata Titus MD 12/06/2018 - 10mg every 8 hours as 02/04/2019 Tablets needed for anxiety Medications Administered in Office Medication SIG Qnty Indications Ordering Provider Date Depomedrol 40MG Tessa Moseley M.D. 01/24/2018 Injection Immunizations Description No Information Available Vital Signs Date Vital Result Comment 02/04/2019 2:29pm Height 64.5 inches 5'4.50" Weight 136.00 lb Heart Rate 82 /min BP Systolic Sitting 107 mmHg BP Diastolic Sitting 65 mmHg Body Temperature 97.9 F O2 % BldC Oximetry 99 % BMI (Body Mass Index) 23.0 kg/m2 01/23/2019 10:27am Height 64.5 inches 5'4.50" Weight 136.00 lb Heart Rate 66 /min BP Systolic Sitting 120 mmHg Rue reg cuff BP Diastolic Sitting 78 mmHg Rue reg cuff O2 % BldC Oximetry 99 % BMI (Body Mass Index) 23.0 kg/m2 Results Test Acquired Facility Test Result H/L Range Note Date Laboratory test 01/23/2019 [facility] HCG Quantitative negative finding () Urine Culture And 01/01/2019 [facility] Urine Culture SEE RESULT [address] [place] [address] [phone] Urine Culture And 12/19/2018 [facility] Urine Culture SEE RESULT [address] [place] [address] [phone] Ua Routine 12/19/2018 [facility] Ua Specific 1.015 [place] Ua PH 7 Ua Color yellow Ua Appera slightly cloudy Ua WBC trace Ua Protein neg Ua Glucose normal Ua Ketones neg Ua Bilirubin neg Ua Urobilinogen normal Ua Nitrite neg Ua Occult Blood trace GC/Chlamydia 12/10/2018 [facility] GCCHL Disclaimer (SEE NOTE) 3 Amplified Rna [address] [place] [address] [phone] Chlamydia trachomatis Bailee Negative Negative Neisseria gonorrhoeae (GC) Bailee Negative Negative CBC Auto 12/06/2018 [facility] White Blood 5.5 10^3/uL Normal 3.5-10.[address] [place] [address] [phone] Red Blood Count 4.28 10^6/uL Normal 3.70-4.87 [...] Blood Cells % 0.1 Comp Metabolic 12/06/2018 [facility] Sodium 139 mmol/L Normal 135-145 Panel [address] [place] [address] [phone] Potassium 3.8 mmol/L Normal 3.5-5.0 Chloride 106 [...] >60 Egfr 125.5 >60 4 Laboratory 12/06/2018 [facility] TSH (Thyroid 1.34 Normal 0.34 -5.60 test finding [address] Stim Horm) mcIU/[place] [address] [phone] C Reactive Protein 9.64 mg/L High <8.01 Nuclear AB 12/06/2018 [facility] Nuclear Ab Positive 1:320 Abnormal 5 (Nayla) By [facility] [address] (Nayla) by Ifa, [place] [address] IgG [phone] Nayla Titer: 1:320 Nayla Pattern: Speckled 6 Laboratory test 12/06/2018 [facility] Rheumatoid 14 IU/mL Normal <[address] [place] [address] [phone] Chlamydia 12/06/2018 [facility] Chlamydia 1:128 Abnormal <1: 64 Antibody Panel [address] [place] [address] [phone] Chlamydia pneumoniae IgM <1:10 titer <1:10 Chlamydia trachomatis IgG <1:64 titer <1:64 Chlamydia trachomatis IgM <1:10 titer <1:10 Chlamydia psittaci IgG <1:64 titer <1:64 Chlamydia psittaci IgM <1:10 titer <1:10 7 1 SEE RESULT BELOW Name: ART PURI : [address]: Candelaria Samano NP Acct: [id number] Unit: [id number] AGE: 23 Location: [facility] Re01/01/19 SEX: F Status: REG REF SPEC: [id number] NEDA: 01/01/19-[address] [facility] [address]: Candelaria Samano NP REQ: [id number] RECD: 01/01/19 STATUS: COMP _ SOURCE: URINE [facility]: ORDERED: Urine Culture COMMENTS: [id number] Urine Source: Random Procedure Result Reported Site Urine Culture Final 01/03/19- 0842 ML Organism 1 STAPHYLOCOCCUS SAPROPHYTICUS [place] Count 75-100,000 (Many) CFU/ML Routine sensitivity testing of urine isolates of S. saprophyticus is not advised, because infections respond to concentrations achieved in urine of antimicrobial agents commonly used to treat acute, uncomplicated urinary tract infections (e.g. nitrofurantoin, trimethoprim+/- sulfamethoxazole, or a fluoroquinolone). [facility] February 2001 * ML - Main Lab . END OF REPORT DEPARTMENT OF PATHOLOGY, [address] [place] [address] Kuldeep Hopkins M.D. Director [facility] # [id number] 2 SEE RESULT BELOW Name: ART PURI : [address]: Namrata Titus MD Acct: [id number] Unit: [id number] AGE: 23 Location: [facility] Re12/19/18 SEX: F Status: REG REF SPEC: [id number] NEDA: 12/19/[address] [facility] [address]: Namrata Titus MD REQ: [id number] RECD: 12/19/18 STATUS:COMP _ SOURCE: URINE SPDESC: ORDERED: Urine Culture COMMENTS: [id number] Urine Source: Random Procedure Result Reported Site Urine Culture Final 12/21/18- 1517 ML Organism 1 STAPHYLOCOCCUS SAPROPHYTICUS [place] Count >100,000 (Many) CFU/ML Routine sensitivity testing of urine isolates of S. saprophyticus is not advised, because infections respond to concentrations achieved in urine of antimicrobial agents commonly used to treat acute, uncomplicated urinary tract infections (e.g. nitrofurantoin, trimethoprim+/- sulfamethoxazole, or a fluoroquinolone). [facility] February 2001 * ML - Main Lab . END OF REPORT DEPARTMENT OF PATHOLOGY, [address] [place] [address] Kuldeep Hopkins M.D. Director [facility] # [id number] 3 As with all diagnostic procedures, the [...] VALUE <1:80 (Negative) 6 Test Performed by: [facility] [place] [address] Electrical Tester Battery: Chano Hart M.D. Ph.D.; CLIA# [id number] ADDITIONAL INFORMATION This test was developed and its performance characteristics determined by [facility] in a manner consistent with CLIA requirements. This test has not been cleared or approved by the U.S. Food and Drug Administration. Test Performed by: [place] [address] Electrical Tester Battery: Chano Hart M.D. Ph.D.; CLIA# [id number] Procedures Description No Information Available Medical Devices Description No Information Available Encounters Type Date Location Provider Dx Diagnosis Office Visit 01/23/2019 [facility] Internal Alisia Mann, N93.8 Other specified 10:30a Medicine Joseph Freitas M.D., FACP abnormal uterine and vaginal bleeding Office Visit 12/20/2018 [facility] Internal Namrata Titus MD K59.00 Constipation, 3:00p Medicine Joseph Freitas unspecified E03.9 Hypothyroidism, unspecified Office Visit 12/06/2018 3:20p [facility] Internal Namrata Titus, E03.9 Hypothyroidism, Medicine Joseph BARKLEY unspecified Cuateob M06.9 Rheumatoid arthritis, unspecified Z11.3 Encntr screen for infections w sexl mode of transmiss F41.9 Anxiety disorder, unspecified K59.00 Constipation, unspecified Assessments Date Code Description Provider 02/04/2019 R51 Headache Namrata Titus MD 02/04/2019 E03.9 Hypothyroidism, unspecified Namrata Titus MD 01/23/2019 N93.8 Other specified abnormal uterine and Alisia Darline Mann., FACP vaginal bleeding 12/20/2018 K59.00 Constipationlaron MD 12/20/2018 E03.9 Hypothyroidism, unspecified Namrata Titus MD 12/19/2018 N39.0 Urinary tract infection, site not specified Nurse Visit A 12/06/2018 E03.9 Hypothyroidism, unspecified Namrata Titus MD 12/06/2018 M06.9 Rheumatoid arthritis, unspecified Namrata Titus MD 12/06/2018 Z11.3 Encounter for screening for infections with Namrata Titus MD a predominantly sexual mode of transmission 12/06/2018 F41.9 Anxiety disorder, unspecboo Titus MD 12/06/2018 K59.00 Constipation, unspecified Namrata Titus MD Plan of Treatment 02/04/2019 - Namrata Titus, MDR51 HeadacheComments:Most likely tension type headache Please take ibuprofen 600 mg three times a day for 3 days and thenstop Also do stretching rrnydkcdsN86.9 Hypothyroidism, unspecifiedNew Medication: Levothyroxine Sodium 75 mcg - 1 by mouth every dayComments:I have reduced the dose of your thyroid medicationPlease get labs checked in 4 weeks Functional Status Description No Information Available Mental Status Description No Information Available Referrals Refer to Dr Reason for Referral Status Appt Date Maryan Guerra, PT, OCS Sent [address] [place] [address] [phone] Laura Kendall N.P. Pt has referral and will call office if she Sent needs to be seen. [address] [place] [address] [phone]
--- OUTSIDE RECORDS SUMMARY | 2019-03-20 15:35 | XMS REPORT | Continuity of Care Document ---
:1995 External Reference #:[id number] Author Name Scarlet Martin MD (transmitted by agent of provider Dahlia Garcia) Address [address] [place] [address] Care Team Providers Name Role Phone Namrata Titus MD - Internal Medicine Care Team Information Recapper Problems Active Problems Provider Date Asthma Namrata Titus MD Onset: 12/06/2018 Rheumatoid arthritis Namrata Titus MD Onset: 12/06/2018 Hypothyroidism Namrata Titus MD Onset: 12/06/2018 Social History Type Date Description Comments Sex Unknown ETOH Use Occasionally consumes alcohol Tobacco Use Start: Unknown Light tobacco smoker (10 or fewer cigarettes/day) Smoking Status Reviewed: 03/11/19 Light tobacco smoker (10 or fewer cigarettes/day) Exercise Type/Frequency Exercises sporadically Allergies, Adverse Reactions, Alerts Description No Known Drug Allergies Medications Active Medications SIG Qnty Indications Ordering Date Provider Ketoconazole apply thin film twice 30gm R21 Judith 03/10/2019 2% Cream daily Marcel Guzman Levothyroxine Sodium 1 by mouth every day [...] Tablets Cipro one by nouth 14tabs Candelaria Selwyn, 01/01/2019 - 250mg Tablets twice daily for [...] Indications Ordering Provider Date Depomedrol 40MG Tessa Jauregui M.D. 01/24/2018 Injection Immunizations Description No Information Available Vital Signs Date Vital Result Comment 03/11/2019 4:05pm Height 64.5 inches 5'4.50" Weight 134.00 lb Heart Rate 96 /min BP Systolic 117 mmHg BP Diastolic 80 mmHg O2 % BldC Oximetry 99 % BMI (Body Mass Index) 22.6 kg/m2 03/10/2019 10:10am Height 64.5 inches 5'4.50" Weight 136.00 lb Heart Rate 93 /min BP Systolic 119 mmHg BP Diastolic 75 mmHg O2 % BldC Oximetry 97 % BMI (Body Mass Index) 23.0 kg/m2 Results Test Acquired Date Facility Test Result H/L Range Note Catecholamines 02/28/2019 [facility] Norepinephrine 426 pg/mL [address] [place] [address] [phone] Epinephrine <25 pg/mL 2 Dopamine <25 pg/mL 3 Laboratory test 02/24/2019 [facility] Aldosterone Urine <pending > finding [address] [place] [address] [phone] Aldosterone 9.9 ng/dL <=21 4 TSH (Thyroid Stim Horm) 1.90 mcIU/mL Normal 0.34-5.60 Laboratory test 01/23/2019 [facility] HCG Quantitative negative finding () Urine Culture And 01/01/2019 [facility] Urine Culture SEE RESULT [address] [place] [address] [phone] Urine Culture And 12/19/2018 [facility] Urine Culture SEE RESULT [address] [place] [address] [phone] Ua Routine 12/19/2018 [facility] Ua Specific [place] 1.015 Ua PH 7 Ua Color yellow Ua Appera slightly cloudy Ua WBC trace Ua Protein neg Ua Glucose normal Ua Ketones neg Ua Bilirubin neg Ua Urobilinogen normal Ua Nitrite neg Ua Occult Blood trace GC/Chlamydia 12/10/2018 [facility] GCCHL Disclaimer (SEE NOTE) 7 Amplified Rna [address] [place] [address] [phone] Chlamydia trachomatis Bailee Negative Negative Neisseria gonorrhoeae (GC) Bailee Negative Negative CBC Auto 12/06/2018 [facility] White Blood 5.5 10^3/uL Normal 3.5-10.[address] [place] [address] [phone] Red Blood Count 4.28 10^6/uL Normal 3.70-4.87 [...] Blood Cells % 0.1 Comp Metabolic 12/06/2018 [facility] Sodium 139 mmol/L Normal 135-[address] [place] [address] [phone] Potassium 3.8 mmol/L Normal 3.5-5.0 Chloride 106 [...] Egfr Non- 103.7 >60 Egfr 125.5 >60 8 Laboratory 12/06/2018 [facility] TSH (Thyroid 1.34 Normal 0.34 -5.60 test finding [address] Stim Horm) mcIU/[place] [address] [phone] C Reactive Protein 9.64 mg/L High <8.01 Nuclear AB 12/06/2018 [facility] Nuclear Ab Positive 1:320 Abnormal 9 (Nayla) By If[facility] [address] (Nayla) by Ifa, [place] [address] IgG [phone] Nayla Titer: 1:320 Nayla Pattern: Speckled 10 Laboratory test 12/06/2018 [facility] Rheumatoid 14 IU/mL Normal <[address] [place] [address] [phone] Chlamydia 12/06/2018 [facility] Chlamydia 1:128 Abnormal <1: 64 Antibody Panel [address] [place] [address] [phone] Chlamydia pneumoniae IgM <1:10 titer <1:10 Chlamydia trachomatis IgG <1:64 titer <1:64 Chlamydia trachomatis IgM <1:10 titer <1:10 Chlamydia psittaci IgG <1:64 titer <1:64 Chlamydia psittaci IgM <1:10 titer <1:10 11 1 REFERENCE VALUE 70-750 (Supine) 200-1700 (Standing) 2 REFERENCE VALUE <111 (Supine) <141 (Standing) 3 REFERENCE VALUE <30 (no postural change) ADDITIONAL INFORMATION PLEASE NOTE: High/Low flagging is based on supine normal values. This test was developed and its performance characteristics determined by [facility] in a manner consistent with CLIA requirements. This test has not been cleared or approved by the U.S. Food and Drug Administration. Test Performed by: [facility] [place] [address] Stockbroking Dealer: Chano Hart M.D. Ph.D.; CLIA# [id number] 4 ADDITIONAL INFORMATION Reference range for patients 11 years and older is based on upright A.M. collection from subjects without sodium restrictions. This test was developed and its performance characteristics determined by [facility] in a manner consistent with CLIA requirements. This test has not been cleared or approved by the U.S. Food and Drug Administration. Test Performed by: [facility] [place] [address] Stockbroking Dealer: Chano Hart M.D. Ph.D.; CLIA# [id number] 5 SEE RESULT BELOW Name: ART PURI : [address]: Candelaria Samano NP Acct: [id number] Unit: [id number] AGE: 23 Location: [facility] Re01/01/19 SEX: F Status: REG REF SPEC: [id number] NEDA: 01/01/19-[address]: Candelaria Samano NP REQ: [id number] RECD: 01/01/19 STATUS: COMP _ SOURCE: URINE SPDESC: ORDERED: Urine Culture COMMENTS: [id number] Urine Source: Random Procedure Result Reported Site Urine Culture Final 01/03/19- 08 ML Organism 1 STAPHYLOCOCCUS SAPROPHYTICUS [place] Count 75-100,000 (Many) CFU/ML Routine sensitivity testing of urine isolates of S. saprophyticus is not advised, because infections respond to concentrations achieved in urine of antimicrobial agents commonly used to treat acute, uncomplicated urinary tract infections (e.g. nitrofurantoin, trimethoprim+/- sulfamethoxazole, or a fluoroquinolone). [facility] February 2001 * ML - [facility] Lab . END OF REPORT DEPARTMENT OF PATHOLOGY, [address] [place] [address] Kuldeep Hopkins M.D. Director [facility] # [id number] 6 SEE RESULT BELOW Name: MICKIEADRIANN : [address]: Namrata Titus MD Acct: [id number] Unit: [id number] AGE: 23 Location: [facility] Re12/19/18 SEX: F Status: REG REF SPEC: [id number] NEDA: [address]: Namrata Titus MD REQ: [id number] RECD: 12/19/18 STATUS:COMP _ SOURCE: URINE [facility]: ORDERED: Urine Culture COMMENTS: [id number] Urine Source: Random Procedure Result Reported Site Urine Culture Final 12/21/18- 1517 ML Organism 1 STAPHYLOCOCCUS SAPROPHYTICUS [place] Count >100,000 (Many) CFU/ML Routine sensitivity testing of urine isolates of S. saprophyticus is not advised, because infections respond to concentrations achieved in urine of antimicrobial agents commonly used to treat acute, uncomplicated urinary tract infections (e.g. nitrofurantoin, trimethoprim+/- sulfamethoxazole, or a fluoroquinolone). [facility] February 2001 * ML - Main Lab . END OF REPORT DEPARTMENT OF PATHOLOGY, [address] [place] [address] Kuldeep Hopkins M.D. Director [facility] # [id number] 7 As with all diagnostic procedures, the laboratory results obtained should be used in conjunction with other clinical information available to the physician, including confirmation by another method, as applicable. 8 Because ethnic data is not always readily [...] 15-29 5 Kidney failure <15 (or dialysis) 9 REFERENCE VALUE <1:80 (Negative) 10 Test Performed by: [facility] [place] [address] Stockbroking Dealer: Chano Hart M.D. Ph.D.; CLIA# [id number] 11 ADDITIONAL INFORMATION This test was developed and its performance characteristics determined by [facility] in a manner consistent with CLIA requirements. This test has not been cleared or approved by the U.S. Food and Drug Administration. Test Performed by: [facility] [place] [address] Stockbroking Dealer: Chano Hart M.D. Ph.D.; CLIA# [id number] Procedures Date Code Description Status 03/07/2019 14196 ECHO Transthoracic, Real-Time 2D With Doppler And Color Completed Flow 02/24/2019 30151 EKG Tracing & Interpretation Completed Medical Devices Description No Information Available Encounters Type Date Location Provider Dx Diagnosis Office Visit 02/24/2019 [facility] Internal Namrata Titus MD E03.9 Hypothyroidism, 2:40p Medicine - Ccmob unspecified R00.2 Palpitations R07.89 Other chest pain Office Visit 02/04/2019 2:40p [facility] Internal Medicine - Namrata Titus MD R51 Headache Ccmob E03.9 Hypothyroidism, unspecified F41.9 Anxiety disorder, unspecified Office Visit 01/23/2019 10:30a [facility] Internal Alisia Mann, N93.8 Other specified Medicine - Fortino Rod, FACP abnormal uterine and vaginal bleeding Office Visit 12/20/2018 3:00p [facility] Internal Namrata Titus, K59.00 [facility] E03.9 Hypothyroidism, unspecified Office Visit 12/06/2018 3:20p [facility] Internal Namrata Titus, E03.9 Hypothyroidism, Medicine - MD unspecified Ccmob M06.9 Rheumatoid arthritis, unspecified Z11.3 Encntr screen for infections w sexl mode of transmiss F41.9 Anxiety disorder, unspecified K59.00 Constipation, unspecified Assessments Date Code Description Provider 03/11/2019 N92.6 Irregular menstruation, unspecified Scarlet Martin MD 03/11/2019 D25.9 Leiomyoma of uterus, unspecified Scarlet Martin MD 03/10/2019 R21 Rash and other nonspecific skin eruption Judith Guzman M.D. 03/07/2019 R00.2 Palpitations Ica ECHO Schedule 02/24/2019 E03.9 Hypothyroidism, unspecified Namrata Titus MD 02/24/2019 R00.2 Palpitations Namrata Titus MD 02/24/2019 R07.89 Other chest pain Namrata Titus MD 02/04/2019 R51 Headache Namrata Titus MD 02/04/2019 E03.9 Hypothyroidism, unspecified Namrata Titus MD 02/04/2019 F41.9 Anxiety disorder, unspecified Namrata Titus MD 01/23/2019 N93.8 Other specified abnormal uterine and Alisia Mann M.D., FACP vaginal bleeding 12/20/2018 K59.00 Constipation, unspecified [...] unspecified Namrata Titus MD Plan of Treatment 03/11/2019 - Scarlet Martin MDN92.6 Irregular menstruation, mugwwsjrkyhN27.9 Leiomyoma of uterus, unspecifiedFollow up:Plan Annual Barkeeper exam one year. Plan to have TV sonogram prior to appt to evaluate fibroid/compare with 01/27/19 sono. Functional Status Description No Information Available Mental Status Description No Information Available Referrals Refer to Dr Reason for Referral Status Appt Date Maryan Guerra, PT, OCS Sent [address] [place] [address] [phone] Laura Kendall N.P. Pt has referral and will call office if she Sent needs to be seen. [address] [place], [place] [address] [phone]
--- OUTSIDE RECORDS SUMMARY | 2019-03-20 15:35 | XMS REPORT ---
:1995 Author Organization [facility] Address [address] [place] [address] Care Team Providers Name Role Phone Clementina Mi Unavailable Unavailable PROBLEMS Type Condition ICD9-CM Code [id number] Code Onset Condition SNOMED Code Dates Status Problem Unspecified N94.10 Active 23702125 dyspareunia Problem Anal spasm K59.4 Active 03302390 ALLERGIES No Information ENCOUNTERS Encounter Location Date Diagnosis [facility] Feb, [place] [id number] [facility] [address] [facility] Feb, [facility] [address] [place] [address], R10.2 [place] Encounter for [place] [id number] screening for infections with a predominantly sexual mode of transmission Z11.3 [facility] Feb, [place] [id number] [facility] Jan, [place] [id number] [facility] [address] Jan, [facility] [address] [place] [id number] [facility] Aug, [place] [id number] [facility] [address] Aug, [facility] [address] [place], gynecological examination [place] [id number] (general) (routine) without abnormal findings Z01.419 ; Encounter for other general counseling and advice on contraception Z30.09 ; Abnormal weight gain R63.5 and Other specified noninflammatory disorders of vagina N89.[address] June, Encounter for [address], gynecological examination [place] [id number] (general) (routine) with abnormal findings Z01.411 ; Unspecified dyspareunia N94.10 ; Encounter for gynecological examination (general) (routine) without abnormal findings Z01.419 ; Anal spasm K59.4 and Encounter for other general counseling and advice on contraception Z30.[address] Sep, [address], [place] [id number] [place] [facility] Jul, [facility], R10.2 ; Un[place] [id number] dyspareunia N94.10 and Anal spasm K59.4 [place] [facility] Jul, Unspecified [facility]ia [facility], N94.10 and Pelvic [place] [address] perineal pain R10.2 [place] [facility] 103 16 Jun, 2017 Encounter for [facility], contraceptive management, [place] [id number] unspecified Z30.[address] June, Encounter for [address], gynecological examination [place] [id number] (general) (routine) without abnormal findings Z01.419 ; Pelvic and perineal pain R10.2 ; Unspecified dyspareunia N94.10 ; Encounter for screening for malignant neoplasm of cervix Z12.4 ; Encounter for screening for infections with a predominantly sexual mode of transmission Z11.3 ; Other specified noninflammatory disorders of vagina N89.8 and Anal spasm K59.4 [place] [facility] Mar, [place] [id number] [place] [facility] Mar, Encounter for other [facility], general counseling and [place] [address] advice on contraception Z30.09 [facility] Aug, OBG[place] [id number] [place] [facility] [address] [facility] Aug, OBGYN [address] [place], [place] [id number] [place] [facility] [address] [facility] June, Encounter for routine OBGYN [address] [place], follow-up Z39.2 [place] [id number] and Encounter for contraceptive management, unspecified Z30.9 [place] [facility] May, [place] [id number] [place] [facility] Apr, [place] [id number] [facility] [facility] Apr, Encounter for OBGYN [facility], screening of mother Z36 [place] [id number] [place] [facility] Apr, Encounter for OBGYN [facility], screening of mother Z36 [place] [id number] [facility] Apr, Encounter for OBGYN [facility], screening of mother Z36 [place] [id number] [facility] Mar, [place] [id number] [facility] Mar, [place] [id number] [facility] 103 Feb, Dysuria R30.0 [place] [id number] [place] [facility] Feb, [place] [id number] [facility] [facility] Feb, Encounter for OBGYN [facility], screening of mother Z36 [place] [id number] [facility] Jan, OBG[place] [id number] [facility] Dec, OBG[place] [address] [facility] Dec, Encounter for suspected [facility], anomaly ruled out [place] [id number] Z03.73 [facility] [facility] Nov, [place]BG[place] [id number] [facility] Nov, Encounter for screening [facility], for infections with a [place] [address] predominantly sexual mode of transmission Z11.3 and Other specified noninflammatory disorders of vagina N89.8 [place] [facility] Nov, Secondary amenorrhea N91.1 O[facility]YN [facility], and Encounter [place] [id number] test, result positive Z32.01 IMMUNIZATIONS No Known Immunizations SOCIAL HISTORY Never Assessed REASON FOR REFERRAL FUNCTIONAL STATUS PLAN OF CARE VITAL SIGNS MEDICATIONS Unknown Medications PROCEDURES No Known procedures RESULTS No Results REASON FOR VISIT [facility] Insurance Providers [facility] Member Patient Patient Patient Patient Patient Subscriber Subscriber Subscriber Group Insurance Plan Plan Plan Plan ID Relationship Address Phone Name Date of ID Name Date of No Type Insurance Insurance Insurance Coverage to Subscriber Address Phone Name Dates Excell[employer] [address] [place] [id number] Blue [id number] 89 [address] 1 Cross/Blue [place] Cross/Blue Shield [id number] Shield Excellus [address] [employer] self Amy [id number] Blue [id number] 89 [place] 1 Cross/Blue [place] Cross/Blue Shield [id number] Shield Excellus [address] [place] Amy [id number] Blue [id number] 89 Blue [place] 6 A2AJ Cross/Blue [place] Cross/Blue Shield [id number] Shield MEDICAL (GENERAL) HISTORY Type Description Date Medical History Hypothyroidism Medical History Asthma Medical History Allergies Surgical History No Surgical history information Hospitalization History Mental Health 07/2014 Hospitalization History Childbirth
--- OUTSIDE RECORDS SUMMARY | 2019-03-20 15:35 | XMS REPORT ---
:1995 Author Organization [facility] Address [address] [place] [address] Care Team Providers Name Role Phone Clementina Mi Unavailable Unavailable PROBLEMS Type Condition ICD9-CM Code [id number] Code Onset Condition SNOMED Code Dates Status Problem Unspecified N94.10 Active 19555690 dyspareunia Problem Anal spasm K59.4 Active 08514689 ALLERGIES No Known Allergies ENCOUNTERS Encounter Location Date Diagnosis [facility] Feb, [place] [id number] [facility] [address] [facility] Feb, [facility] [address] [place] [address], R10.2 [place]counter [place] [id number] screening for infections with a predominantly sexual mode of transmission Z11.3 [facility] Feb, [place] [id number] [facility] 103 Jan, [place] [address] [facility] [address] Jan, [facility] [address] [place], [place] [id number] [facility] Aug, [place] [address] [facility] [address] Aug, [facility] [address] [place], gynecological examination [place] [id number] (general) (routine) without abnormal findings Z01.419 ; Encounter for other general counseling and advice on contraception Z30.09 ; Abnormal weight gain R63.5 and Other specified noninflammatory disorders of vagina N89.[address] June, Encounter for [facility] [address] [place], gynecological examination [place] [id number] (general) (routine) with abnormal findings Z01.411 ; Unspecified dyspareunia N94.10 ; Encounter for gynecological examination (general) (routine) without abnormal findings Z01.419 ; Anal spasm K59.4 and Encounter for other general counseling and advice on contraception Z30.[address] Sep, [address] [id number] [place] [facility] Jul, [facility], R10.2 ; Unspecified [place] [id number] dyspareunia N94.10 and Anal spasm K59.4 [facility] Jul, Unspecified [facility]ia [facility], N94.10 and [place]vic [place] [id number] perineal pain R10.2 [facility] June, Encounter for [facility], contraceptive management, [place] [id number] unspecified Z30.[address] June, Encounter for [address], gynecological examination [place] [id number] (general) (routine) without abnormal findings Z01.419 ; Pelvic and perineal pain R10.2 ; Unspecified dyspareunia N94.10 ; Encounter for screening for malignant neoplasm of cervix Z12.4 ; Encounter for screening for infections with a predominantly sexual mode of transmission Z11.3 ; Other specified noninflammatory disorders of vagina N89.8 and Anal spasm K59.4 [facility] Mar, [place] [id number] [facility] Mar, Encounter for other [facility], general counseling and [place] [id number] advice on contraception Z30.09 [facility] Aug, OBG[place] [address] [place] [facility] [address] [place] [facility] Aug, OBGYN [address] [place], [place] [id number] [place] [facility] [address] [facility] June, Encounter for routine OBGYN Road [address] [place], follow-up Z39.2 [place] [id number] and Encounter for contraceptive management, unspecified Z30.9 [facility] May, OBG[place] [id number] [facility] Apr, [place] [id number] [facility] Apr, Encounter for OBGYN [facility], screening of mother Z36 [place] [id number] [facility] Apr, Encounter for OBGYN [facility], screening of mother Z36 [place] [id number] [facility] Apr, Encounter for OBGYN [facility], screening of mother Z36 [place] [id number] [facility] Mar, [place] [id number] [facility] Mar, [place] [address] [facility] 103 Feb, Dysuria R30.0 [place] [id number] [facility] Feb, O[place] [id number] [facility] Feb, Encounter for OBGYN [facility], screening of mother Z36 [place] [id number] [facility] Jan, [place] [address] [facility] Dec, [place] [address] [facility] Dec, Encounter for suspected [facility], anomaly ruled out [place] [id number] Z03.73 [facility] Nov, [place] [address] [facility] Nov, Encounter for screening [facility], for infections with a [place] 629392836 predominantly sexual mode of transmission Z11.3 and Other specified noninflammatory disorders of vagina N89.8 [facility] Nov, Secondary amenorrhea N91.1 [facility], and Encounter [place] [address] test, result positive Z32.01 IMMUNIZATIONS No Known Immunizations SOCIAL HISTORY Never Assessed REASON FOR REFERRAL FUNCTIONAL STATUS PLAN OF CARE VITAL SIGNS MEDICATIONS Medication Instructions Dosage Frequency Start End Duration Status Date Date NuvaRing 0.015 intravaginally 1 ea 84 days Active mg-0.120 mg/24 every 4 weeks hours levothyroxine 88 orally once a day 1 tab(s) 24h Active mcg (0.088 mg) Albuterol inhaler Active Zyrtec 10 mg orally once a day 1 tab(s) 24h Active Xanax Active Singulair 10 mg orally once a day 1 tab(s) 24h Active PROCEDURES Procedure Date Ordered Result Body Site Broken appointment without 24 hr notice Jan 10, 2019 RESULTS No Results REASON FOR VISIT post 2 antibiotics, still having symptoms, burning when urinating, vaginal discharge, "blood coming out of urethra" , Where has she been treated ? Need urine UA/C+S Insurance Providers [facility] Member Patient Patient Patient Patient Patient Subscriber Subscriber Subscriber Group Insurance Plan Plan Plan Plan ID Relationship Address Phone Name Date of ID Name Date of No Type Insurance Insurance Insurance Coverage to Subscriber Address Phone Name Dates [facility] [phone] Adrian Reyes [id number] Blue [id number] 89 [address] [place] 1 Cross[place]Blue [place] Cross/Blue Shield [id number] Shield Adrian [address] Adrian Reyes [id number] Blue [id number] 89 Blue [place] 1 Cross/Blue [place] Cross/Blue Shield [address] Shield Adrian [address] Adrian Reyes [id number] Blue [id number] 89 Blue [place] 6 A2AJ Cross[place] Cross[place]Blue Shield [address] Shield MEDICAL (GENERAL) HISTORY Type Description Date Medical History Hypothyroidism Medical History Asthma Medical History Allergies Surgical History No Surgical history information Hospitalization History Mental Health 07/2014 Hospitalization History Childbirth
--- OUTSIDE RECORDS SUMMARY | 2019-03-20 15:35 | XMS REPORT ---
:1995 Author Organization [facility] Address [address] [place] [address] Care Team Providers Name Role Phone Clementina Mi Unavailable Unavailable PROBLEMS Type Condition ICD9-CM Code [id number] Code Onset Condition SNOMED Code Dates Status Problem Unspecified N94.10 Active 72256907 dyspareunia Problem Anal spasm K59.4 Active 35211725 ALLERGIES No Information ENCOUNTERS Encounter Location Date Diagnosis [facility] Feb, [place] [id number] [facility] [address] [facility] Feb, [facility] [address] [place] [address], R10.2 and Encounter for [place] [id number] screening for infections with a predominantly sexual mode of transmission Z11.3 [facility] Feb, [place] [id number] [facility] Jan, [place] [id number] [facility] [address] Jan, [facility] [address] [place] [id number] [facility] [address] Aug, [place] [id number] [facility] [address] Aug, Encounter for [facility] [address] [place], gynecological examination [place] [id number] (general) (routine) without abnormal findings Z01.419 ; Encounter for other general counseling and advice on contraception Z30.09 ; Abnormal weight gain R63.5 and Other specified noninflammatory disorders of vagina N89.[address] June, Encounter for [address], gynecological examination [place] [id number] (general) (routine) with abnormal findings Z01.411 ; Unspecified dyspareunia N94.10 ; Encounter for gynecological examination (general) (routine) without abnormal findings Z01.419 ; Anal spasm K59.4 and Encounter for other general counseling and advice on contraception Z30.[address] Sep, [address], [place] [id number] [place] [facility] Jul, Pel[facility]ineal [facility], R10.2 ; Unspecified [place] [id number] dyspareunia N94.10 and Anal spasm K59.4 [place] [facility] Jul, Unspecified [facility]unia [facility], N94.10 and Pelvic and [place] [id number] perineal pain R10.2 [place] [facility] 103 16 Jun, 2017 Encounter for [facility], contraceptive management, [place] [address] unspecified Z30.[address] June, Encounter for [address], gynecological examination [place] [id number] (general) (routine) without abnormal findings Z01.419 ; Pelvic and perineal pain R10.2 ; Unspecified dyspareunia N94.10 ; Encounter for screening for malignant neoplasm of cervix Z12.4 ; Encounter for screening for infections with a predominantly sexual mode of transmission Z11.3 ; Other specified noninflammatory disorders of vagina N89.8 and Anal spasm K59.4 [place] [facility] Mar, [place] [address] [place] [facility] Mar, Encounter for other [facility], general counseling and [place] [id number] advice on contraception Z30.09 [facility] Aug, [place] [id number] [place] [facility] [address] [facility] Aug, OBGYN [address] [place], [place] [id number] [place] [facility] [address] [facility] June, Encounter for routine OBGYN Road [address] [place], follow-up Z39.2 [place] [id number] and Encounter for contraceptive management, unspecified Z30.9 [place] [facility] May, [place] [id number] [place] [facility] Apr, [place] [id number] [place] [facility] Apr, Encounter for OBGYN [facility], screening of mother Z36 [place] [id number] [place] [facility] Apr, Encounter for OBGYN [facility], screening of mother Z36 [place] [id number] [facility] Apr, Encounter for OBGYN [facility], screening of mother Z36 [place] [id number] [facility] Mar, [place] [id number] [facility] Mar, [place] [id number] [facility] 103 Feb, Dysuria R30.0 [place] [id number] [place] [facility] Feb, [place] [id number] [place] [facility] 103 Feb, Encounter for OBGYN [facility], screening of mother Z36 [place] [id number] [facility] Jan, [place], [place] [id number] [facility] Dec, [place] [id number] [place] [facility] 103 Dec, Encounter for suspected OBGYN [facility], anomaly ruled out [place] [id number] Z03.73 [place] [facility] Nov, [place] [address] [facility] Nov, Encounter for screening OBGYN [facility], for infections with a [place] 006[address]356 predominantly sexual mode of transmission Z11.3 and Other specified noninflammatory disorders of vagina N89.8 [place] [facility] Nov, Secondary amenorrhea N91.1 OBGYN [facility], and Encounter [place] [id number] test, result positive Z32.01 IMMUNIZATIONS No Known Immunizations SOCIAL HISTORY Never Assessed REASON FOR REFERRAL FUNCTIONAL STATUS PLAN OF CARE VITAL SIGNS MEDICATIONS Unknown Medications PROCEDURES No Known procedures RESULTS No Results REASON FOR VISIT Annual due 08/2019 Insurance Providers [facility] Member Patient Patient Patient Patient Patient Subscriber Subscriber Subscriber Group Insurance Plan Plan Plan Plan ID Relationship Address Phone Name Date of ID Name Date of No Type Insurance Insurance Insurance Coverage to Subscriber Address Phone Name Dates Alexandraus [address] [place] self Amy [id number] Blue [id number] 89 Blue [place] 1 Cross/Blue [place] Cross/Blue Shield 232[address] Shield Excellus [address] Amy [id number] Blue [id number] 89 Blue [place] 1 Cross[place] Cross/Blue Shield 648[address] Shield Excellus [address] [place] Amy [id number] Blue 93951 89 Blue [place] 6 A2AJ Cross[place] Cross/Blue Shield [id number] Shield MEDICAL (GENERAL) HISTORY Type Description Date Medical History Hypothyroidism Medical History Asthma Medical History Allergies Surgical History No Surgical history information Hospitalization History Mental Health 07/2014 Hospitalization History Childbirth
--- NOTE | 2019-03-20 15:45 | UC ---
FLU HPI - HPI Summary HPI Summary: 23 yo female presents with headache. She tells me that she has a history of headache and had an MRI when she was a teenager due to this. Over the last month or so has been having a headache that starts in her right occipital region and radiates to the right parietal region. Sharp and stabbing in nature. Over the last 5 days headache has been more constant and is associated with intermittent blurry vision, trouble concentrating, and nausea. She also notes that over the last 5 days she has had body aches, fatigue, and a dry cough. States whole body feels weak. 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 She has been taking tylenol with no change in her symptoms. She is admittedly anxious. States today she checked her temperature and noted it to be elevated around 100F. Denies sore throat, SOB, chest pain, abdominal pain, vomiting, diarrhea, dysuria, back pain, numbness or tingling. No recent travel or hx of blood clots. - History of Current Complaint Stated Complaint: HEADACHE,NAUSEA/VOMITING,DIZZINESS Time Seen by Provider: 03/20/19 15:45 Hx Obtained From: Patient Hx Last Menstrual Period: 10/21/18 Onset/Duration: Gradual Onset Severity Currently: Moderate Severity Initially: Moderate Pain Intensity: 7 Pain Scale Used: 0-10 Numeric - Allergy/Home Medications Allergies/Adverse Reactions: Allergies Allergy/AdvReac Type Severity Reaction Status Date / Time kiwi Allergy Itching Verified 03/20/19 15:53 orange Allergy Itching Verified 03/20/19 15:53 pineapple Allergy Itching Verified 03/20/19 15:53 Environmental Allergy Congestion Uncoded 03/20/19 15:53 PMH/Surg Hx/FS Hx/Imm Hx Endocrine History: Hypothyroidism Respiratory History: Asthma - Surgical History Surgical History: None - Family History Known Family History: Positive: Non-Contributory - Social History Occupation: Employed Full-time Lives: With Family Alcohol Use: Daily Alcohol Amount: a few drinks each night - pt states "drinks" Substance Use Type: None Substance Use Comment - Amount & Last Used: not since last year Smoking Status (MU): Current Some Day Smoker Type: Cigarettes Amount Used/How Often: states occasional Length of Time of Smoking/Using Tobacco: 1.5 years When Did the Patient Quit Smoking/Using Tobacco: 2.5 weeks ago - Immunization History Vaccination Up to Date: Yes Review of Systems All Other Systems Reviewed And Are Negative: No Constitutional: Positive: Fatigue, Other - Body aches Skin: Positive: Negative Eyes: Positive: Blurred Vision ENT: Positive: Negative Respiratory: Positive: Cough Cardiovascular: Positive: Negative Gastrointestinal: Positive: Nausea Genitourinary: Positive: Negative Motor: Positive: Negative Neurovascular: Positive: Negative Musculoskeletal: Positive: Negative Neurological/Mental Status: Positive: Headache Psychological: Positive: Anxious Physical Exam - Summary Physical Exam Summary: GENERAL: NAD. WDWN. No pain distress. SKIN: No rashes, sores, ulcers, masses, lesions. HEENT: Head: AT/NC. Eyes: PERRLA. EOM intact. Conjunctiva clear without inflammation or discharge. Ears: Hearing grossly normal. TMs intact, no bulging, erythema, or edema. Nose: Nasal mucosa pink and moist. NTTP maxillary and frontal sinus. Throat: Posterior oropharynx without exudates, erythema, or tonsillar enlargement. Uvula midline. NECK: Supple. Nontender. FROM. No meningismus. CHEST: CTAB. No r/r/w. No accessory muscle use. Breathing comfortably and in no distress. CV: RRR. Pulses intact. Brisk cap refill. ABDOMEN: Soft. NTTP. Bowel sounds present MSK: FROM in B/L UEs and LEs with symmetric strength. NEURO: A&Ox3. CN: II: Peripheral welsh intact. Vision normal. III, IV, : EOMI. No nystagmus. PERRLA. V: Sensations intact and symmetric. Opens mouth and clenches teeth. VII: No facial asymmetry. Forehead wrinkles. Grins, shuts eyes, frowns, puffs cheeks. VIII: Hearing intact to finger rub. IX, X: Swallows and coughs. Uvula midline. XI: Shrugs shoulders. Turns head against resistance. XII : No tongue deviation [id number] are intact. Gait with normal base. Romberg : maintains balance, no pronator drift. Normal speech. No facial drooping. PSYCH: Age appropriate behavior. Triage Information Reviewed: Yes Vital Signs: Vital Signs: Temp Pulse Resp BP Pulse Ox 99.2 F 103 15 120/67 99 03/20/19 15:47 03/20/19 15:47 03/20/19 15:47 03/20/19 15:47 03/20/19 15:47 Laboratory Tests 03/20/19 03/20/19 03/20/19 16:03 16:13 16:15 POC Urine Color Yellow POC Urine Clarity Clear POC Urine pH 7.0 POC Ur Specif [place] 1.020 POC Urine Protein Negative POC Ur Glucose (UA) Negative POC Urine Ketones Negative POC Urine Blood Negative POC Urine Nitrite Negative POC Urine Bilirubin Negative POC Urine Urobilinogen 0.2 POC U Leukocyte Esteras Negative POC Ur Test Negative Influenza A (Rapid) Negative Influenza B (Rapid) Negative Vital Signs Reviewed: Yes Diagnostics - Radiology CT brain Radiology Interpretation Completed By: Radiologist Summary of Radiographic Findings: IMPRESSION: NO EVIDENCE FOR ACUTE INTRACRANIAL ABNORMALITY. Re-Evaluation - Re-Evaluation First Eval Re-Evaluation Time: 16:45 Change: Improved Comment: Discussed results of CT. Pt states she feels much better now knowing that she does have brain cancer as her cousin of this. Flu Course/Dx - Course Course Of Treatment: UA negative. Flu negative. Urine negative. CT scan as above negative. Discussed results with pt. She stated that she feels much better now that she knows she does not have "brain cancer" as her cousin of this. I discussed her options for treatment for her headache including IV fluids, benadryl, toradol, reglan, and/or excedrin. Pt did not want an IV at this time and declined medication for nausea. She opted to try toradol, thus she was given toradol 60mg IM and dispensed zofran 4mg to take if nauseous. Advised to rest and continue tylenol - may start ibuprofen tomorrow. If symptoms worsen to go to the ED. Recommend f/u with neurologist if headaches persist as she has a history of headaches from a young age. Pt voiced understanding and agrees with the plan. - Differential Dx/Diagnosis Provider Diagnosis: Headache Discharge ED - Sign-Out/Discharge Documenting (check all that apply): Patient Departure All imaging exams completed and their final reports reviewed: Yes - Discharge Plan Condition: Stable Disposition: HOME Patient Education Materials: Acute Headache (ED) Referrals: Namrata Titus MD [Primary Care Provider] - Elias Khan MD [Medical Doctor] - Additional Instructions: If you develop a fever, shortness of breath, chest pain, new or worsening symptoms - please call your PCP or go to the ED immediately. May take 800mg ibuprofen every 8 hours starting tomorrow. Take the zofran for nausea if needed as directed. If your headaches continue, I recommend that you follow up with a neurologist. - Billing Disposition and Condition Condition: STABLE Disposition: Home - Attestation Statements Provider Attestation: This patient was not seen by me. I was available for consult. Chart reviewed. LINDA
[2019-03-20 15:53] VITALS: BP 120/67
[2019-03-20] MEDS: Ondansetron ODT TAB* 4 MG SL ONE (16:00)
[2019-03-20 16:15] LABS: Influenza A Molecular Negative (Negative); Influenza B Molecular Negative (Negative)
[2019-03-20] MEDS: Ketorolac *IM* INJ* 60 MG/2 ML VIAL IM ONE (16:46)
== END 2019-03-20 17:00 | disposition home or self-care (01) ==
LOC: UCEAST 15:28
DX: R51 Headache (principal); J45.909 Unspecified asthma, uncomplicated; E03.9 Hypothyroidism, unspecified; R11.0 Nausea; R53.83 Other fatigue; R05 Cough; H53.8 Other visual disturbances; F17.210 Nicotine dependence, cigarettes, uncomplicated; Z91.09 Other allergy status, other than to drugs and biological substances; Z91.018 Allergy to other foods
CPT/HCPCS: 70450; 81003; 84702; 96372; 99212; A9270-GY; G0463; J1885

== ENCOUNTER 2019-04-22 21:01 | Emergency (ER) | payer BC ==
--- OUTSIDE RECORDS SUMMARY | 2019-04-22 21:09 | XMS REPORT | Continuity of Care Document ---
:1995 External Reference #:[id number] Author Name Danielle Gage N.P. (transmitted by agent of provider Roopa Gonzalez) Address [address], [place] [address] Care Team Providers Name Role Phone Judith Guzman MD - Internal Care Team Information Cad Engineer Medicine Problems Active Problems Provider Date Asthma Namrata Titus MD Onset: 12/06/2018 Rheumatoid arthritis Namrata Titus MD Onset: 12/06/2018 Hypothyroidism Namrata Titus MD Onset: 12/06/2018 Social History Type Date Description Comments Sex Unknown Tobacco Use Start: Unknown Light tobacco smoker (10 or fewer cigarettes/day) Smoking Status Reviewed: 04/16/19 Light tobacco smoker (10 or fewer cigarettes/day) ETOH Use Occasionally consumes alcohol Tobacco Use Start: Unknown Light tobacco smoker (10 or fewer cigarettes/day) Exercise Type/Frequency Exercises sporadically Allergies, Adverse Reactions, Alerts Description No Known Drug Allergies Medications Active Medications SIG Qnty Indications Ordering Date Provider Aripiprazole 1 PO QHS 30tabs F41.9 Judith 04/01/2019 2mg Marcel Guzman Tablets Ketoconazole apply thin film twice 30gm R21 Judith 03/10/2019 2% Cream daily Marcel Guzman Levothyroxine Sodium 1 by mouth every day 30tabs E03.9 Namrata Titus MD 75mcg Tablets Xanax 1 by mouth every 8h 14tabs Judith 12/27/2018 0.25mg Tablets as needed Marcel Guzman Nuvaring Insert 1 Ring Every 4 Unknown Weeks Intravaginally 0.12-0.015mg/24HR Ring Zyrtec Allergy take one tablet by Unknown 10mg mouth in the evening Capsules Singulair 1 by mouth every day 90tabs Namrata Titus MD 10mg Tablets History Medications Levothyroxine Sodium 1 by mouth every 90tabs Namrata Titus MD 01/17/2019 - day 02/04/2019 88mcg Tablets Cipro one by nouth 14tabs Candelaria Padgettgosia, 01/01/2019 - 250mg Tablets twice daily for [...] Available Vital Signs Date Vital Result Comment 04/16/2019 9:01am Height 64.5 inches 5'4.50" Weight 134.00 lb Heart Rate 84 /min BP Systolic 114 mmHg BP Diastolic 70 mmHg O2 % BldC Oximetry 99 % BMI (Body Mass Index) 22.6 kg/m2 Last Menstrual Period [id number] 04/01/2019 1:39pm Height 64.5 inches 5'4.50" Weight 134.00 lb Heart Rate 116 /min BP Systolic 131 mmHg BP Diastolic 80 mmHg BMI (Body Mass Index) 22.6 kg/m2 Results Test Acquired Date Facility Test Result H/L Range Note Laboratory test 03/20/2019 [facility] Poc Negative Negative [address] , [place] [address] Urine [phone] Poc Urinalysis 03/20/2019 [facility] Poc NEGATIVE Negative [address] Glucose, [place] [address] Urine [phone] Poc Bilirubin, Urine NEGATIVE Negative Poc Ketone, Urine NEGATIVE Negative Poc Specific Joseph, Urine 1.020 Normal 1.010-1.030 Poc Blood, Urine NEGATIVE Negative 2 Poc pH, Urine 7.0 Normal 5-9 Poc Protein, Urine NEGATIVE Negative Poc Urobilinogen, Urine 0.2 Negative Poc Nitrite, Urine NEGATIVE Negative Poc Leukocytes, Urine NEGATIVE Negative Poc Color, Urine YELLOW Poc Clarity, Urine CLEAR Rapid Influenza 03/20/2019 [facility] Influenza A Negative Negative A & B Molecular [address] [place] [address] [phone] Influenza B Molecular Negative Negative 3 Laboratory test 03/12/2019 [facility] HCG < 0.60 [address] mIU/mL [place], [place] [id number] [phone] Catecholamines Plasma 02/28/2019 [facility] Norepinephrine 426 pg/mL [address] [place] [address] [phone] Epinephrine <25 pg/mL 6 Dopamine <25 pg/mL 7 Laboratory test 02/24/2019 [facility] Aldosterone 9.9 ng/dL < =[address] [place] [address] [phone] TSH (Thyroid Stim Horm) 1.90 mcIU/mL Normal 0.34-5.60 Laboratory test 01/23/2019 [facility] In House HCG Quantitative negative finding () Urine Culture And 01/01/2019 [facility] Urine Culture SEE RESULT [address] [place] [address] [phone] Urine Culture And 12/19/2018 [facility] Urine Culture SEE RESULT [address] [place] [address] [phone] Ua Routine 12/19/2018 [facility] In House Ua Specific Joseph 1.015 Ua PH 7 Ua Color yellow Ua Appera slightly cloudy Ua WBC trace Ua Protein neg Ua Glucose normal Ua Ketones neg Ua Bilirubin neg Ua Urobilinogen normal Ua Nitrite neg Ua Occult Blood trace GC/Chlamydia 12/10/2018 [facility] GCCHL Disclaimer (SEE NOTE) 11 Amplified Rna [address] [place] [address] [phone] Chlamydia trachomatis Bailee Negative Negative Neisseria gonorrhoeae (GC) Bailee Negative Negative CBC Auto 12/06/2018 [facility] White Blood 5.5 10^3/uL Normal 3.5-10.[address] [place] [address] [phone] Red Blood Count 4.28 10^6/uL Normal 3.70-4.87 [...] Blood Cells % 0.1 Comp Metabolic 12/06/2018 [facility] Sodium 139 mmol/L Normal 135-[address] [place] [address] [phone] Potassium 3.8 mmol/L Normal 3.5-5.0 Chloride 106 [...] Egfr Non- 103.7 >60 Egfr 125.5 >60 12 Laboratory 12/06/2018 [facility] TSH (Thyroid 1.34 Normal 0.34 -5.60 test finding [address] Stim Horm) mcIU/[place] [address] [phone] C Reactive Protein 9.64 mg/L High <8.01 Nuclear AB 12/06/2018 [facility] Nuclear Ab Positive 1:320 Abnormal 13 (Nayla) By Ifa [address] (Nayla) by Ifa, [place] [address] IgG [phone] Nayla Titer: 1:320 Nayla Pattern: Speckled 14 Laboratory test 12/06/2018 [facility] Rheumatoid 14 IU/mL Normal <[address] [place] [address] [phone] Chlamydia 12/06/2018 [facility] Chlamydia 1:128 Abnormal <1: [address] [place] [address] [phone] Chlamydia pneumoniae IgM <1:10 titer <1:10 Chlamydia trachomatis IgG <1:64 titer <1:64 Chlamydia trachomatis IgM <1:10 titer <1:10 Chlamydia psittaci IgG <1:64 titer <1:64 Chlamydia psittaci IgM <1:10 titer <1:10 15 1 Assistant Infant Teacher: [id number] Test Disclaimer: Positive bacteria, red blood cells, white blood cells, early , low specific gravity, and other factors may cause false positive or negative results. It is recommended to retest unexpected and borderline results with a serum test when applicable. If is still suspected, please repeat test after 48 to 72 hours. 2 Assistant Infant Teacher: [id number] 3 Assistant Infant Teacher: [id number] 4 <5.0 Negative 5.0 - 25.0 Indeterminate (Repeat testing recommended after 72 hours) >25.0 Positive Perimenopausal women can display HCG levels of up to 20 mIU/mL 5 REFERENCE VALUE 70-750 (Supine) 200-1700 (Standing) 6 REFERENCE VALUE <111 (Supine) <141 (Standing) 7 REFERENCE VALUE <30 (no postural change) ADDITIONAL INFORMATION PLEASE NOTE: High/Low flagging is based on supine normal values. This test was developed and its performance characteristics determined by [facility] in a manner consistent with CLIA requirements. This test has not been cleared or approved by the U.S. Food and Drug Administration. Test Performed by: [facility] [address] Pipe Stress Engineer: Chano Hart M.D. Ph.D.; CLIA# [id number] 8 ADDITIONAL INFORMATION Reference range for patients 11 years and older is based on upright A.M. collection from subjects without sodium restrictions. This test was developed and its performance characteristics determined by [facility] in a manner consistent with CLIA requirements. This test has not been cleared or approved by the U.S. Food and Drug Administration. Test Performed by: [facility] [address] Pipe Stress Engineer: Chano Hart M.D. Ph.D.; CLIA# [id number] 9 SEE RESULT BELOW Name: ART CORADO : [address]: Candelaria Samano NP Acct: [id number] Unit: [id number] AGE: 23 Location: [facility] Re01/01/19 SEX: F Status: REG REF SPEC: [id number] NEDA: 01/01/19-[address]: Candelaria Samano NP REQ: [id number] RECD: 01/01/19 STATUS: COMP _ SOURCE: URINE SPDESC: ORDERED: Urine Culture COMMENTS: [id number] Urine Source: Random Procedure Result Reported Site Urine Culture Final 01/03/19- 0842 ML Organism 1 STAPHYLOCOCCUS SAPROPHYTICUS [place] Count 75-100,000 (Many) CFU/ML Routine sensitivity testing of urine isolates of S. saprophyticus is not advised, because infections respond to concentrations achieved in urine of antimicrobial agents commonly used to treat acute, uncomplicated urinary tract infections (e.g. nitrofurantoin, trimethoprim+/- sulfamethoxazole, or a fluoroquinolone). [facility] February 2001 * ML - Main Lab . END OF REPORT DEPARTMENT OF PATHOLOGY, [address] [place] [address] Kuldeep Hopkins M.D. Director [facility] # [id number] 10 SEE RESULT BELOW Name: ART CORADO : [address]: Namrata Titus MD Acct: [id number] Unit: [id number] AGE: 23 Location: [facility] Re12/19/18 SEX: F Status: REG REF SPEC: [id number] NEDA: 12/19/18 [facility] DR: Namrata Titus MD REQ: [id number] RECD: 12/19/18 STATUS:COMP _ SOURCE: URINE SPDESC: ORDERED: Urine Culture COMMENTS: [id number] Urine Source: Random Procedure Result Reported Site Urine Culture Final 12/21/18- 1517 ML Organism 1 STAPHYLOCOCCUS SAPROPHYTICUS [place] Count >100,000 (Many) CFU/ML Routine sensitivity testing of urine isolates of S. saprophyticus is not advised, because infections respond to concentrations achieved in urine of antimicrobial agents commonly used to treat acute, uncomplicated urinary tract infections (e.g. nitrofurantoin, trimethoprim+/- sulfamethoxazole, or a fluoroquinolone). [facility] February 2001 * ML - Main Lab . END OF REPORT DEPARTMENT OF PATHOLOGY, [address] [place] [address] Kuldeep Hopkins M.D. Director [facility] # [id number] 11 As with all diagnostic procedures, the laboratory results obtained should be used in conjunction with other clinical information available to the physician, including confirmation by another method, as applicable. 12 Because ethnic data is not always readily [...] 15-29 5 Kidney failure <15 (or dialysis) 13 REFERENCE VALUE <1:80 (Negative) 14 Test Performed by: [facility] [address] Pipe Stress Engineer: Chano aHrt M.D. Ph.D.; CLIA# [id number] 15 ADDITIONAL INFORMATION This test was developed and its performance characteristics determined by [facility] in a manner consistent with CLIA requirements. This test has not been cleared or approved by the U.S. Food and Drug Administration. Test Performed by: [place] [address] Pipe Stress Engineer: Chano Hart M.D. Ph.D.; CLIA# [id number] Procedures Date Code Description Status 03/12/2019 45124 ECG Monitor/Recording W/Visual Superimposition Scanning Completed 03/07/2019 00637 ECHO Transthoracic, Real-Time 2D With Doppler And Color Completed Flow 03/07/2019 19022 ECHO Transthoracic, Real-Time 2D With Doppler And Color Completed Flow 02/24/2019 71982 EKG Tracing & Interpretation Completed Medical Devices Description No Information Available Encounters Type Date Location Provider Dx Diagnosis Office Visit 04/01/2019 2:00p Quality Audit Representative Internal Judith Guzman, R51 Headache Medicine - Fortino Rod M26.52 Limited mandibular range of motion F41.9 Anxiety disorder, unspecified S06.0x0A Concussion without loss of consciousness, initial encounter Office Visit 03/17/2019 10:45a [facility] Dermatology Bc R K13.0 Diseases of lips Cristiano, Office Visit 03/11/2019 4:00p [facility] Veronica, N92.6 [facility] at David Narayanan unspecified R93.89 Abnormal findings on dx imaging of oth body structures Z32.00 Encounter for test, result unknown Office Visit 03/10/2019 10:00a [facility] Internal Judith R21 Rash and other Medicine - Marcel Guzman nonspecific skin [facility] eruption Office Visit 02/24/2019 2:40p [facility] Internal Namrata Titus MD E03.9 Hypothyroidism, Medicine - unspecified [facility] R00.2 Palpitations R07.89 Other chest pain Office Visit 02/04/2019 2:40p [facility] Internal Medicine - Namrata Titus MD R51 Headache [facility] E03.9 Hypothyroidism, unspecified F41.9 Anxiety disorder, unspecified Office Visit 01/23/2019 10:30a [facility] Internal Alisia Mackenzie, N93.8 Other specified Medicine - Fortino Rod, FACP abnormal uterine and vaginal bleeding Office Visit 12/20/2018 3:00p [facility] Internal Namrata Titus, K59.00 [facility] E03.9 Hypothyroidism, unspecified Office Visit 12/06/2018 3:20p [facility] Internal Namrata Titus, E03.9 Hypothyroidism, Medicine - unspecified [facility] M06.9 Rheumatoid arthritis, unspecified Z11.3 Encntr screen for infections w sexl mode of transmiss F41.9 Anxiety disorder, unspecified K59.00 Constipation, unspecified Assessments Date Code Description Provider 04/01/2019 R51 Headache Judith Guzman M.D. 04/01/2019 M26.52 Limited mandibular range of motion Judith Guzman M.D. 04/01/2019 F41.9 Anxiety disorder, unspecified Judith Guzman M.D. 04/01/2019 S06.0x0A Concussion without loss of consciousness, Judith Guzman M.D. initial encounter 03/17/2019 K13.0 Diseases of lips Abdiel Colon MD 03/17/2019 K13.0 Diseases of lips Bc Quinonez, 03/13/2019 R00.2 Palpitations Im Nurse Holter Monitor 03/12/2019 R00.2 Palpitations Im Nurse Holter Monitor 03/11/2019 N92.6 Irregular menstruation, unspecified Scarlet Martin MD 03/11/2019 R93.89 Abnormal findings on diagnostic imaging Scarlet Martin MD of other specified body structures 03/11/2019 Z32.00 Encounter for test, result Scarlet Martin MD unknown 03/10/2019 R21 Rash and other nonspecific skin eruption Judith Guzman M.D. 03/07/2019 R00.2 Palpitations Sabi Garrison M.D. 03/07/2019 R00.2 Palpitations Ica ECHO Schedule 02/24/2019 E03.9 Hypothyroidism, unspecified Namrata Titus MD 02/24/2019 R00.2 Palpitations Namrata Titus MD 02/24/2019 R07.89 Other chest pain Namrata Titus MD 02/04/2019 R51 Headache Namrata Titus MD 02/04/2019 E03.9 Hypothyroidism, unspecified Namrata Titus MD 02/04/2019 F41.9 Anxiety disorder, unspecified Namrata Titus MD 01/23/2019 N93.8 Other specified abnormal uterine and Alisiashanda Mann M.D., FACP vaginal bleeding 12/20/2018 K59.00 Constipation, unspecified Namrata Titus MD 12/20/2018 E03.9 Hypothyroidism, unspecified Namrata Titus MD 12/19/2018 N39.0 Urinary tract infection, site not Nurse Visit A specified 12/06/2018 E03.9 Hypothyroidism, unspecified Namrata Titus MD 12/06/2018 M06.9 Rheumatoid arthritis, unspecified Namrata Titus MD 12/06/2018 Z11.3 Encounter for screening for infections Namrata Titus MD with a predominantly sexual mode of transmission 12/06/2018 F41.9 Anxiety disorder, unspecboo Titus MD 12/06/2018 K59.00 Constipation, unspecified Namrata Titus MD Plan of Treatment Future Appointment(s):04/22/2019 10:45 am - Nat Fleming LCSW at [facility] 2:20 pm - Judith Guzman M.D. at [facility] Internal Medicine - [facility]07/08/2019 3:00 pm - Judith Guzman M.D. at [facility] Internal Medicine - [facility] Functional Status Description No Information Available Mental Status Description No Information Available Referrals Refer to Dr Reason for Referral Status Appt Date Ashley Nuñez LCSW or Nat (first available) Scheduled 04/22/2019 [address], [place] [address] [phone] [facility] Dermatology Appointment with Dr. Quinonez on Friday 03/17 - Scheduled 11/2019 10:[address] [place] [address] [address] [place] [phone] Maryan Guerra, PT, OCS Sent [address] [place] [address] [phone] Laura Kendall N.P. Pt has referral and will call office if she Sent needs to be seen. [address] [place] [address] [phone]
--- OUTSIDE RECORDS SUMMARY | 2019-04-22 21:09 | XMS REPORT | Continuity of Care Document ---
:1995 External Reference #:[id number] Author Name Judith Guzman M.D. 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 Active Problems Provider Date Asthma Namrata Titus MD Onset: 12/06/2018 Rheumatoid arthritis Namrata Titus MD Onset: 12/06/2018 Hypothyroidism Namrata Titus MD Onset: 12/06/2018 Social History Type Date Description Comments Sex Unknown Tobacco Use Start: Unknown Light tobacco smoker (10 or fewer cigarettes/day) Smoking Status Reviewed: 04/01/19 Light tobacco smoker (10 or fewer cigarettes/day) ETOH Use Occasionally consumes alcohol Tobacco Use Start: Unknown Light tobacco smoker (10 or fewer cigarettes/day) Exercise Type/Frequency Exercises sporadically Allergies, Adverse Reactions, Alerts Description No Known Drug Allergies Medications Active Medications SIG Qnty Indications Ordering Date Provider Aripiprazole 1 PO QHS 30tabs F41.9 [facility] 04/01/2019 2mg Marcel Guzman Tablets Ketoconazole apply thin film twice 30gm R21 [facility] 03/10/2019 2% Cream daily Marcel Guzman Levothyroxine [...] Available Vital Signs Date Vital Result Comment 04/01/2019 1:39pm Height 64.5 inches 5'4.50" Weight 134.00 lb Heart Rate 116 /min BP Systolic 131 mmHg BP Diastolic 80 mmHg BMI (Body Mass Index) 22.6 kg/m2 03/11/2019 4:05pm Height 64.5 inches 5'4.50" Weight 134.00 lb Heart Rate 96 /min BP Systolic 117 mmHg BP Diastolic 80 mmHg O2 % BldC Oximetry 99 % BMI (Body Mass Index) 22.6 kg/m2 Results Test Acquired Date Facility Test Result H/L Range Note Laboratory test 03/20/2019 [facility] Poc Negative Negative [address] , [place] [address] Urine [phone] Poc Urinalysis 03/20/2019 [facility] Poc NEGATIVE Negative [address] Glucose, [place] [address] Urine [phone] Poc Bilirubin, Urine NEGATIVE Negative Poc Ketone, Urine NEGATIVE Negative Poc Specific [place], Urine 1.020 Normal 1.010-1.030 Poc Blood, Urine NEGATIVE Negative 2 Poc pH, Urine 7.0 Normal 5-9 Poc Protein, Urine NEGATIVE Negative Poc Urobilinogen, Urine 0.2 Negative Poc Nitrite, Urine NEGATIVE Negative Poc Leukocytes, Urine NEGATIVE Negative Poc Color, Urine YELLOW Poc Clarity, Urine CLEAR Rapid Influenza 03/20/2019 [facility] Influenza A Negative Negative A & B Molecular [address] [place] [address] [phone] Influenza B Molecular Negative Negative 3 Laboratory test 03/12/2019 [facility] HCG < 0.60 [address] mIU/[place] [address] [phone] Catecholamines Plasma 02/28/2019 [facility] Norepinephrine 426 pg/mL [address] [place] [address] [phone] Epinephrine <25 pg/mL 6 Dopamine <25 pg/mL 7 Laboratory test 02/24/2019 [facility] Aldosterone 9.9 ng/dL < =21 [address] [place] [address] [phone] TSH (Thyroid Stim Horm) 1.90 mcIU/mL Normal 0.34-5.60 Laboratory test 01/23/2019 [facility] In House HCG Quantitative negative finding () Urine Culture And 01/01/2019 [facility] Urine Culture SEE RESULT [address] [place] [address] [phone] Urine Culture And 12/19/2018 [facility] Urine Culture SEE RESULT [address] [place] [address] [phone] Ua Routine 12/19/2018 [facility] Ua Specific [place] 1.015 Ua PH 7 Ua Color yellow Ua Appera slightly cloudy Ua WBC trace Ua Protein neg Ua Glucose normal Ua Ketones neg Ua Bilirubin neg Ua Urobilinogen normal Ua Nitrite neg Ua Occult Blood trace GC/Chlamydia 12/10/2018 [facility] GCCHL Disclaimer (SEE NOTE) 11 Amplified Rna [address] [place] [address] [phone] Chlamydia trachomatis Bailee Negative Negative Neisseria gonorrhoeae (GC) Bailee Negative Negative CBC Auto 12/06/2018 [facility] White Blood 5.5 10^3/uL Normal 3.5-10.[address] [place] [address] [phone] Red Blood Count 4.28 10^6/uL Normal 3.70-4.87 [...] Blood Cells % 0.1 Comp Metabolic 12/06/2018 [facility] Sodium 139 mmol/L Normal 135-[address] [place] [address] [phone] Potassium 3.8 mmol/L Normal 3.5-5.0 Chloride 106 [...] >60 Egfr 125.5 >60 12 Laboratory 12/06/2018 [facility] TSH (Thyroid 1.34 Normal 0.34 -5.60 test finding [address] Stim Horm) mcIU/[place] [address] [phone] C Reactive Protein 9.64 mg/L High <8.01 Nuclear AB 12/06/2018 [facility] Nuclear Ab Positive 1:320 Abnormal 13 (Nayla) By [facility] [address] (Nayla) by [employer], [place] [address] IgG [phone] Nayla Titer: 1:320 Nayla Pattern: Speckled 14 Laboratory test 12/06/2018 [facility] Rheumatoid 14 IU/mL Normal <[address] [place] [address] [phone] Chlamydia 12/06/2018 [facility] Chlamydia 1:128 Abnormal <1: 64 Antibody Panel [address] pneumoniae [place] [address] [phone] Chlamydia pneumoniae IgM <1:10 titer <1:10 Chlamydia trachomatis IgG <1:64 titer <1:64 Chlamydia trachomatis IgM <1:10 titer <1:10 Chlamydia psittaci IgG <1:64 titer <1:64 Chlamydia psittaci IgM <1:10 titer <1:10 15 1 Construction Equipment Mechanic Helper: [id number] Test Disclaimer: Positive bacteria, red blood cells, white blood cells, early , low specific gravity, and other factors may cause false positive or negative results. It is recommended to retest unexpected and borderline results with a serum test when applicable. If is still suspected, please repeat test after 48 to 72 hours. 2 Construction Equipment Mechanic Helper: [id number] 3 Construction Equipment Mechanic Helper: [id number] 4 <5.0 Negative 5.0 - 25.0 Indeterminate [...] developed and its performance characteristics determined by [facility] in a manner consistent with CLIA requirements. This test has not been cleared or approved by the U.S. Food and Drug Administration. Test Performed by: [facility] [place] [address] Carburizer: Chano Hart M.D. Ph.D.; CLIA# [id number] 8 ADDITIONAL INFORMATION Reference range for patients 11 years and older is based on upright A.M. collection from subjects without sodium restrictions. This test was developed and its performance characteristics determined by [facility] in a manner consistent with CLIA requirements. This test has not been cleared or approved by the U.S. Food and Drug Administration. Test Performed by: [facility] [place] [address] Carburizer: Chano Hart M.D. Ph.D.; CLIA# [id number] 9 SEE RESULT BELOW Name: ART CORADO : [address]: Candelaria Samano NP Acct: [id number] Unit: [id number] AGE: 23 Location: [facility] Re01/01/19 SEX: F Status: REG REF SPEC: [id number] NEDA: 01/01/19-[address] [facility] [address]: Candelaria Samano NP REQ: [id number] RECD: 01/01/19 STATUS: COMP _ SOURCE: URINE [facility]: ORDERED: Urine Culture COMMENTS: [id number] Urine Source: Random Procedure Result Reported Site Urine Culture Final 01/03/19- 0842 ML Organism 1 STAPHYLOCOCCUS SAPROPHYTICUS [place] Count 75-100,000 (Many) CFU/ML Routine sensitivity testing of urine isolates of S. saprophyticus is not advised, because infections respond to concentrations achieved in urine of antimicrobial agents commonly used to treat acute, uncomplicated urinary tract infections (e.g. nitrofurantoin, trimethoprim+/- sulfamethoxazole, or a fluoroquinolone). [facility] February 2001 * - Main Lab . END OF REPORT DEPARTMENT OF PATHOLOGY, [address] [place] [address] Kuldeep Hopkins M.D. Director [facility] # [id number] 10 SEE RESULT BELOW Name: ART CORADO : [address]: Namrata Titus MD Acct: [id number] Unit: [id number] AGE: 23 Location: [facility] Re12/19/18 SEX: F Status: REG REF SPEC: [id number] NEDA: 12/19/18 [facility] DR: Namrata Titus MD REQ: [id number] RECD: 12/19/18 STATUS:COMP _ SOURCE: URINE SPDESC: ORDERED: Urine Culture COMMENTS: [id number] Urine Source: Random Procedure Result Reported Site Urine Culture Final 12/21/18- 1517 ML Organism 1 STAPHYLOCOCCUS SAPROPHYTICUS [place] Count >100,000 (Many) CFU/ML Routine sensitivity testing of urine isolates of S. saprophyticus is not advised, because infections respond to concentrations achieved in urine of antimicrobial agents commonly used to treat acute, uncomplicated urinary tract infections (e.g. nitrofurantoin, trimethoprim+/- sulfamethoxazole, or a fluoroquinolone). [facility] February 2001 * ML - Main Lab . END OF REPORT DEPARTMENT OF PATHOLOGY, [address] [place] [address] Kuldeep Hopkins M.D. Director [facility] # [id number] 11 As with all diagnostic procedures, the [...] VALUE <1:80 (Negative) 14 Test Performed by: [facility] [place] [address] Carburizer: Chano Hart M.D. Ph.D.; CLIA# [id number] ADDITIONAL INFORMATION This test was developed and its performance characteristics determined by [facility] in a manner consistent with CLIA requirements. This test has not been cleared or approved by the U.S. Food and Drug Administration. Test Performed by: [facility] [place] [address] Carburizer: Chano Hart M.D. Ph.D.; CLIA# [id number] Procedures Date Code Description Status 03/12/2019 21643 ECG Monitor/Recording W/Visual Superimposition Scanning Completed 03/07/2019 20334 ECHO Transthoracic, Real-Time 2D With Doppler And Color Completed Flow 03/07/2019 24666 ECHO Transthoracic, Real-Time 2D With Doppler And Color Completed Flow 02/24/2019 83272 EKG Tracing & Interpretation Completed Medical Devices Description No Information Available Encounters Type Date Location Provider Dx Diagnosis Office Visit 03/17/2019 [facility] R K13.0 Diseases of lips 10:45a DO Cristiano Office Visit 03/11/2019 [employer] Scarlet Martin, N92.6 Irregular 4:00p [facility] unspecified R93.89 Abnormal findings on dx imaging of oth body structures Z32.00 Encounter for test, result unknown Office Visit 03/10/2019 10:00a [facility] Internal Judith R21 Rash and other Medicine - Marcel Guzman nonspecific skin Ccmob eruption Office Visit 02/24/2019 2:40p [facility] Internal Namrata Titus MD E03.9 Hypothyroidism, Medicine - unspecified Ccmob R00.2 Palpitations R07.89 Other chest pain Office Visit 02/04/2019 2:40p [facility] Internal Medicine - Namrata Titus MD R51 Headache Ccmob E03.9 Hypothyroidism, unspecified F41.9 Anxiety disorder, unspecified Office Visit 01/23/2019 10:30a [facility] Internal Alisia Mackenzie, N93.8 Other specified Medicine - Fortino Rod, FACP abnormal uterine and vaginal bleeding Office Visit 12/20/2018 3:00p [facility] Internal Namrata Titus, K59.00 [facility] E03.9 Hypothyroidism, unspecified Office Visit 12/06/2018 3:20p [facility] Internal Namrata Titus, E03.9 Hypothyroidism, Medicine - [...] MD 03/17/2019 K13.0 Diseases of lips Bc Quinonez DO 03/13/2019 R00.2 Palpitations Im Nurse Holter Monitor [...] N93.8 Other specified abnormal uterine and Alisia Marcel Mann, FACP vaginal bleeding 12/20/2018 K59.00 Constipation, laron Titus MD 12/20/2018 E03.9 Hypothyroidism, unspecified Namrata Titus MD 12/19/2018 N39.0 Urinary tract infection, site not Nurse Visit A specified 12/06/2018 E03.9 Hypothyroidism, unspecboo Titus MD 12/06/2018 M06.9 Rheumatoid arthritis, aminahified Namrata Titus MD 12/06/2018 Z11.3 Encounter for screening for infections Namrata Titus MD with a predominantly sexual mode of transmission 12/06/2018 F41.9 Anxiety disorder, laron Titus MD 12/06/2018 K59.00 Constipation, unspecboo Titus MD Plan of Treatment Future Appointment(s):07/08/2019 3:00 pm - Judith Guzman M.D. at [facility] Internal Medicine - [facility]04/01/2019 - Judith Guzman M.D.R51 HeadacheNew Xrays:CT Brain Wo, Ordered: 04/01/19Comments:Plan: collect some stuff from home and stay with a rnrfvfH41.52 Limited mandibular range of motionNew Xrays: Mandible Complete, Ordered: 04/01/19F41.9 Anxiety disorder, unspecifiedNew Medication:Aripiprazole 2 mg - 1 PO QHSComments:Find out about the [facility] Employee Assistance ProgramI strongly recommend counseling I strongly recommend you reduce alcohol Start Abilify, and make appt to see Linnette KendallReferral:Ashley Nuñez LCSW, Social WorkerFollow up:2 [id number] Concussion without loss of consciousness, initial encounter Functional Status Description No Information Available Mental Status Description No Information Available Referrals Refer to Dr Reason for Referral Status Appt Date Ashley Nuñez LCSW or Nat (first available) Created [address], [place] [address] [phone] [facility] Dermatology Appointment with Dr. Quinonez on Friday 03/17 - Scheduled 11/2019 10:[address] [place] [address] [address] [facility] [place] [phone] Maryan Guerra, PT, OCS Sent [address] [place] [address] [phone] Laura Kendall N.P. Pt has referral and will call office if she Sent needs to be seen. [address] [place] [address] [phone]
[2019-04-22] MEDS ORDERED: methylPREDNISolone 125 MG* 2 ML VIAL IM ONE (21:11)
[2019-04-22] MEDS ORDERED: Famotidine TAB* 20 MG PO ONE (21:11)
--- NOTE | 2019-04-22 21:11 | UC ---
Throat Pain/Nasal Marlon HPI - HPI Summary HPI Summary: 23 yo female presents with lip swelling. She tells me that she has many environmental and some food allergies. She ate corned beef and cabbage about 1.5 hours ago. She stated to feel that her body was itching and going to break out in hives so she took 25mg benadryl and a zyrtec. She did not develop hives or a rash and her itching improved, but she noticed swelling to her upper lip prompting her visit to the this evening. She notes some throat itching. She denies recent illness, fever, cough, sore throat, sob, chest pain, wheezing, throat swelling, or difficulty breathing. No nausea or vomiting or headache. - History of Current Complaint Stated Complaint: FACIAL SWELLING Time Seen by Provider: 04/22/19 21:06 Hx Obtained From: Patient Hx Last Menstrual Period: 10/21/18 Onset/Duration: Sudden Onset Severity: Mild Pain Intensity: 2 Pain Scale Used: 0-10 Numeric - Allergies/Home Medications Allergies/Adverse Reactions: Allergies Allergy/AdvReac Type Severity Reaction Status Date / Time kiwi Allergy Itching Verified 04/22/19 21:08 orange Allergy Itching Verified 04/22/19 21:08 pineapple Allergy Itching Verified 04/22/19 21:08 Environmental Allergy Congestion Uncoded 04/22/19 21:08 Home Medications: Home Medications Cetirizine* [ZyrTEC 10 MG TAB*] 1 tab PO DAILY 02/11/14 [History Confirmed 03/20] Levothyroxine TAB* 75 mcg PO DAILY 02/11/14 [History Confirmed 03/20/19] diPHENhydraMINE PO* [Benadryl PO 25 MG TAB*] 1 tab PO DAILY WITH MEAL PRN [History Confirmed 03/20/19] Etonogest/Eth.estradiol (Nf) [Nuvaring Vaginal Ring] 1 each VAGINAL .SEE COMMENTS 03/18/18 [History Confirmed 03/20/19] Albuterol HFA INHALER* [Ventolin HFA Inhaler*] 1 puff INH Q4H PRN 06/13/18 [ History Confirmed 03/20/19] Montelukast Sodium TAB* [Singulair TAB*] 10 mg PO DAILY 06/13/18 [History Confirmed 02/28/19] EPINEPHrine [Epipen 2-Giovani] 0.3 mg IM ONCE #1 inj 04/22/19 [Rx] predniSONE [Prednisone 20 MG TAB] 20 mg PO DAILY 7 Days #13 tablet 04/22/19 [Rx] PMH/Surg Hx/FS Hx/Imm Hx Endocrine History: Hypothyroidism Neurological History: Migraine - Surgical History Surgical History: None - Family History Known Family History: Positive: Non-Contributory - Social History Alcohol Use: Daily Alcohol Amount: a few drinks each night - pt states "drinks" Substance Use Type: None Substance Use Comment - Amount & Last Used: not since last year Smoking Status (MU): Current Some Day Smoker Type: Cigarettes Amount Used/How Often: states occasional Length of Time of Smoking/Using Tobacco: 1.5 years When Did the Patient Quit Smoking/Using Tobacco: 2.5 weeks ago - Immunization History Vaccination Up to Date: Yes Review of Systems All Other Systems Reviewed And Are Negative: No Constitutional: Positive: Negative Skin: Positive: Negative Eyes: Positive: Negative ENT: Positive: Other - upper lip swelling Respiratory: Positive: Negative Cardiovascular: Positive: Negative Gastrointestinal: Positive: Negative Musculoskeletal: Positive: Negative Neurological/Mental Status: Positive: Negative Psychological: Positive: Negative Physical Exam - Summary Physical Exam Summary: GENERAL: NAD. WDWN. No distress. SKIN: No rashes, urticaria, open wounds, or erythema. HEENT: Mild upper lip edema. No periorbital or other facial edema. Airway patent without oropharyngeal edema. NECK: Supple. Nontender. No lymphadenopathy. CHEST: CTAB. No wheezing. No accessory muscle use. Breathing comfortably and in no distress. CV: RRR. Pulses intact. Cap refill <2seconds NEURO: Alert. PSYCH: Age appropriate behavior. Triage Information Reviewed: Yes Vital Signs: Vital Signs: Temp Pulse Resp BP Pulse Ox 98.8 F 107 18 128/80 98 04/22/19 21:09 04/22/19 21:09 04/22/19 21:09 04/22/19 21:09 04/22/19 21:09 Vital Signs Reviewed: Yes Re-Evaluation - Re-Evaluation First Eval Re-Evaluation Time: 21:41 Change: Improved Comment: Pt reports feeling better with less "tightness" of her lip. No more throat itching or tongue feeling "funny" Throat Pain/Nasal Course/Dx - Course Course Of Treatment: Suspect allergic reaction to something in the corned beef and cabbage meal as this is not something she usually eats and only did today due to [employer] day. She is breathing well and is in no distress. She was given 125mg Solu-medrol and 40mg pepcid for her upper lip swelling. She was observed for ~45 minutes and had improvement of her tongue feeling funny and throat feeling itching. She states that her lip swells like this often and will stay this way for a few hours after allergic contact. No noted change to lip s/p solumedrol IM. Will rx for prednisone and an epipen. Advised to go to the ED if her symptoms worsen or change. - Differential Dx/Diagnosis Provider Diagnosis: Lip swelling Discharge ED - Sign-Out/Discharge Documenting (check all that apply): Patient Departure All imaging exams completed and their final reports reviewed: No Studies - Discharge Plan Condition: Stable Disposition: HOME Prescriptions: EPINEPHrine [Epipen 2-Giovani] 0.3 mg IM ONCE #1 inj predniSONE [Prednisone 20 MG TAB] 20 mg PO DAILY 7 Days #13 tablet Patient Education Materials: Food Allergy (ED), General Allergic Reaction (ED) Referrals: Judith Guzman MD [Primary Care Provider] - Additional Instructions: - Take prednisone exactly as prescribed until gone - starting tomorrow - Okay to take Benadryl 25mg every 6 hours as needed for itching and hives. This medication may cause drowsiness - do NOT drive, operate machinery or drink alcohol while taking Benadryl -Avoid getting over-heated (hot showers, hot tubs, exercise) for at least 48 hours - Try to avoid aspirin, NSAIDs (Motrin, Aleve, Naprosyn) for 2-3 days - Okay to apply cool compresses to the area of injury - Fill your prescription for the epi pen - keep with you and use if you develop an reaction that causes difficulty breathing, facial or mouth swelling, trouble swallowing, or any other concerns - call 911 if you use your epi pen -Contact your doctor or return here with questions or concerns - Billing Disposition and Condition Condition: STABLE Disposition: Home
[2019-04-22 22:10] VITALS: BP 127/81
== END 2019-04-22 21:43 | disposition home or self-care (01) ==
LOC: UCEAST 21:01
DX: K13.0 Diseases of lips (principal); E03.9 Hypothyroidism, unspecified; F17.210 Nicotine dependence, cigarettes, uncomplicated; Z91.018 Allergy to other foods; Z91.09 Other allergy status, other than to drugs and biological substances; Z79.890 Hormone replacement therapy
CPT/HCPCS: 96372; 99212; A9270-GY; G0463; J2930